=== PATIENT | male | born 1965 | race Caucasian/White ===

== ENCOUNTER 2016-10-29 02:23 | Inpatient (IN) | payer OTHER ==
[2016-10-29] VITALS (7 sets, daily range): BP systolic 124–138; BP diastolic 81–97; PULSE 64–101; RESP 12–20; TEMP 96.1–98.9; O2SAT 96–100
[~2016-10-29] VITALS: Ht 175.3 cm; Wt 95.7 kg
[~2016-10-29 02:23] MED LIST: CEFU1TAB20 PO; DILA2TAB2 PO
--- NOTE | 2016-10-29 03:15 | PD ---
HPI Chief Complaint: Injury Time Seen by Provider: 02:58 Travel History International Travel<30 days: No Contact w/Intl Traveler<30days: No Traveled to known affect area: No History of Present Illness HPI So 51-year-old man, seen on October 12 with a laceration to his left second and third finger with a power saw, repaired by Dr. Stacy Braswell, discharged a couple days after that. He reportedly saw her in the office last week and was recommended to work presents to the emergency department for concern for infection. He reports he's been feeling sick with worsening pain and swelling. He apparently went to the [facility] last night, they had x-rays that showed concern for osteomyelitis, elevated inflammatory markers, and they spoke with Dr. Upton who recommended patient be transferred to [place]. History Past Medical History Narrative Medical Polysubstance abuse/IV drug use Social History Alcohol Use: Yes (rare) Tobacco Use: Yes (1ppd) Allergies-Medications (Allergen,Severity, Reaction): Coded Allergies: No Known Allergies (Unverified , 10/12/16) Reported Meds & Prescriptions Reported Meds & Active Scripts Active No Active Prescriptions or Reported Medications Review of Systems Except as stated in HPI: all other systems reviewed are Neg Physical Exam Narrative GENERAL: 51-year-old man, sleeping in the room, no acute distress. SKIN: Focused skin assessment warm/dry. CARDIOVASCULAR: Warm and well perfused. RESPIRATORY: Normal rate and effort. GASTROINTESTINAL: Abdomen soft, non-tender, nondistended. Hepatic and splenic margins not palpable. MUSCULOSKELETAL: Fusiform swelling of the left second and third digits. There is cough and scab along good parts of both digits. They're held slightly flexed. There are pins in both digits. I don't see any obvious purulent drainage. PSYCHIATRIC: Appropriate mood and affect; insight and judgment normal. Data Data Last Documented VS Vital Signs Date Time Temp Pulse Resp B/P Pulse Ox O2 Delivery O2 Flow Rate FiO2 10/29/16 02:31 94 100 10/29/16 02:31 98.7 14 131/88 Room Air Orders Admit Order (Ed Use Only) (10/29/16 ) [facility] Medical Decision Making Medical Screen Exam Complete: Yes Emergency Medical Condition: Yes Medical Record Reviewed: Yes Interpretation(s) Review of outpatient records: CBC remarkable for white count 7.4, hemoglobin 14.6 Sedimentation rate 36 CMP shows elevated liver enzymes CRP 19 Lactate 2.3 UA negative Chest x-ray negative Left hand x-ray: See lysis and marked demineralization at the PIP joint index finger which was previously stabilized to thin wires, suspect for inflammation or osteomyelitis. Associated soft tissue swelling. Retrograde stabilization of the DIP joint the middle finger so she with marked soft tissue swelling and heterogenous calcification. My review of EKG: Normal sinus rhythm at a rate of 75, normal axis, normal intervals, incomplete right bundle. No acute infarction. Differential Diagnosis Osteomyelitis, soft tissue infection, inflammation, other Narrative Course Medical decision making 51-year-old man, referred from an outside ED for concern for osteomyelitis. Accepted by Dr. Rocha. I spoke with Dr. Upton. Would like patient Nothing by mouth. Surgery today with Dr. Braswell. Diagnosis Primary Impression: Infection of left hand Scripts No Active Prescriptions or Reported Meds Miguel Ángel Trejo MD Oct 29, 2016 03:15
[2016-10-29] MEDS ORDERED: Vancomycin Consult Pharmacy 1 EA OTHER SCH (03:30)
[2016-10-29] MEDS ORDERED: SODIUM CHLORIDE 0.9% FLUSH 10 ML FLUSH IV FLUSH PRN (03:30)
[2016-10-29] MEDS ORDERED: NALOXONE HCL 0.4 MG/ML AMP IV PRN (03:30)
[2016-10-29] MEDS ORDERED: VANCOMYCIN INJ 2,400 MG in SODIUM CHLORID 0.9% 500 ML INJ 500 ML IV ONE (04:00)
[2016-10-29] MEDS: PIPERACIL-TAZO 4.5 GM PREMIX 100 ML IV SCH ×4 (04:04→21:20)
--- NOTE | 2016-10-29 06:02 | HHI.HP ---
HPI Service [facility] Primary Care Physician No Primary Care Physician Admission Diagnosis osteomyelitis left second and third digit Diagnoses: Travel History International Travel<30 Days: No Contact w/Intl Traveler <30 Da: No Traveled to Known Affected Are: No History of Present Illness History from patient, ER physician communication, and review of medical records. Patient is known to me from his prior hospitalization. Patient in his last hospitalization had hand surgery for having had injury from a chain saw. He reports that since discharge, he noticed that his wound was getting more and more swollen with purulent discharge. He then had an outpatient appointment with Dr. Braswell the hand surgeon on Wednesday. He was told at that time that he does have postop infection and that he needed to be on antibiotics. She was supposed to come to hospital on that day. He however did not come. However for the past 2 days, he started having some nausea, some sweating. No diaphoresis. He also did report of some vomiting. Reports of sweating with subjective fevers at that time. This symptoms of nausea and vomiting was what made him go to [facility] which was the closest place to him at that time. His workup done there reviewed. He has had left hand x-ray suggestive of osteomyelitis. His case was discussed with the hand surgery bullion weigher by [facility] staff members and he was transferred here for surgical intervention of this postop infection. Patient is admitted to medicine service per hand surgery request. Review of Systems Except as stated in HPI: all other systems reviewed are Neg Past Family Social History Past Medical History None Past Surgical History October 13, 2016open reduction and pain in all fracture dislocation of the left middle finger DIP joint with placement of bone allograft. See detailed OR report Allergies: Coded Allergies: No Known Allergies (Unverified , 10/12/16) Social History Still smokes a pack a day. Denies any alcohol abuse. States he uses cocaine occasionally. He uses it by IV injection. Last used was 6 days prior to the previous hospitalization. This would be around September. Physical Exam Vital Signs Vital Signs Date Time Temp Pulse Resp B/P Pulse Ox O2 Delivery O2 Flow Rate FiO2 10/29/16 02:31 94 100 7/13/17 02:31 98.7 78 14 131/88 100 Room Air 10/29/16 02:27 98.9 14 100 Physical Exam GENERAL: This is a well-nourished, well-developed patient, in no apparent distress. SKIN: Left middle finger and index finger with scaling skin, and swelling. Visible pins from post op HEAD: Atraumatic. Normocephalic. No temporal or scalp tenderness. EYES: No scleral icterus. No injection or drainage. ENT: Nose without bleeding, purulent drainage or septal hematoma. Airway patent. NECK: Trachea midline. No JVD CARDIOVASCULAR: Regular rate and rhythm without murmurs, gallops, or rubs. RESPIRATORY: Clear to auscultation. Breath sounds equal bilaterally. No wheezes , rales, or rhonchi. GASTROINTESTINAL: Abdomen soft, non-tender, nondistended.. No guarding. MUSCULOSKELETAL: Extremities without clubbing, cyanosis, or edema. No calf tenderness. NEUROLOGICAL: Awake and alert. Normal speech. No focal deficits. [facility] the [facility] hand done at [facility] is reviewed. Assessment and Plan Assessment and Plan Impression: Left hand postoperative infection Nausea/vomitingetiology unclear. Possibly secondary to underlying infection from the hand. However would need to rule out intra-abdominal etiologies. Would also rule out ACS in a patient who abuses cocaine, with chronic smoking history and vague symptoms without specific abdominal pain. Plan: Pain control IV hydration. Pain control. Patient was started on vancomycin and Zosyn. We'll continue same regimen for her creatinine clearance and levels. We'll follow up wound cultures results. DVT prophylaxiswith SCD. Discussed Condition With Patient, ER physician, patient's nurse, transfer center Physician Certification 2 Midnight Certification Type: Admission for Inpatient Services Order for Inpatient Services The services are ordered in accordance with Medicare regulations or non- Medicare payer requirements, as applicable. In the case of services not specified as inpatient-only, they are appropriately provided as inpatient services in accordance with the 2-midnight benchmark. Estimated LOS (days): 2 days is the estimated time the patient will need to remain in the hospital, assuming treatment plan goals are met and no additional complications. Post-Hospital Plan: Home Juliana Rocha MD Oct 29, 2016 06:02
[2016-10-29 06:34] LABS: AUTOMATED NEUTROPHIL # 7.4 TH/MM3 (1.8-7.7); BASOPHIL # 0.1 TH/MM3 (0-0.2); BASOPHIL % 0.7 % (0.0-2.0); EOSINOPHIL # 0.1 TH/MM3 (0-0.4); EOSINOPHIL % 0.9 % (0.0-4.0); HEMO FLAGS DIFF FINAL; LYMPH % 17.3 % (9.0-44.0); LYMPHOCYTE # 1.8 TH/MM3 (1.0-4.8); MEAN CELL VOLUME 84.1 FL (80.0-100.0); MEAN CORPUSCULAR HEMOGLOBIN 29.5 PG (27.0-34.0); MEAN CORPUSCULAR HGB CONC 35.1 % (32.0-36.0); MONO % 8.8 % (0.0-8.0); NEUT % 72.3 % (16.0-70.0); PLATELET COUNT 318 TH/MM3 (150-450); RED BLOOD COUNT 4.76 MIL/MM3 (4.50-5.90); RED CELL DISTRIBUTION WIDTH 13.6 % (11.6-17.2); WHITE BLOOD COUNT 10.2 TH/MM3 (4.0-11.0)
[2016-10-29 06:44] LABS: APTT (PATIENT) 29.6 SEC (24.3-30.1); INTERNATIONAL NORMALIZED RATIO 1.1 RATIO
[2016-10-29 07:00] LABS: ALT (GPT) 295 U/L (12-78)
[2016-10-29 07:02] LABS: ALKALINE PHOSPHATASE 98 U/L (45-117); TOTAL BILIRUBIN ADULT 0.9 MG/DL (0.2-1.0)
[2016-10-29 07:04] LABS: ANION GAP 7 MEQ/L (5-15); AST (GOT) 154 U/L (15-37); BICARBONATE 24.1 MEQ/L (21.0-32.0); BLOOD UREA NITROGEN 15 MG/DL (7-18); CHLORIDE 105 MEQ/L (98-107); GLOMERULAR FILTRATION RATE 70 ML/MIN (>89); SODIUM (NA) 136 MEQ/L (136-145)
[2016-10-29 07:06] LABS: POTASSIUM 4.6 MEQ/L (3.5-5.1)
[2016-10-29 07:50] LABS: AMPHETAMINE, URINE POS (NEG); BARBITURATES, URINE NEG (NEG); COCAINE, URINE NEG (NEG)
--- NOTE | 2016-10-29 07:52 | RADRPT ---
EXAM DATE/TIME: 10/29/2016 07:33 [facility] COMPARISON: HAND LEFT COMPLETE ([id number]), October 12, 2016, 20:59. INDICATIONS : Left hand surgical wound infection and pain. MEDICAL HISTORY : None. SURGICAL HISTORY : Left hand digit repair, 2nd & 3rd. ENCOUNTER: Subsequent ACUITY: 3 days PAIN SCORE: 5/10 LOCATION: Left hand, 2nd & 3rd digits FINDINGS: Post surgical changes are noted following pinning and reduction of fractures involving the second and third digits. Third digit demonstrates 2 pins extending longitudinally through the proximal and mid phalanx. The di slocated distal interphalangeal joint has been realigned. Fracture involving the mid interphalangeal joint of second digit has been stabilized with 2 pins. The re appears to be satisfactory alignment of the proximal and mid phalanges. CONCLUSION: Status post pinning and reduction of fractures involving the second and third digits as described. Nicola Cruz MD on October 29, 2016 at 7:48 Board Certified Radiologist. This report was verified electronically.
--- NOTE | 2016-10-29 08:29 | EKG ---
Date Performed: 10/29/2016 Time Performed: 06:14:37 PTAGE: 51 years EKG: Sinus rhythm INCOMPLETE RIGHT BUNDLE BRANCH BLOCK BORDERLINE ECG PREVIOUS TRNo significant change from PREVIOUS TRACING noted.ACIN10/13/2016 08.00 DOCTOR: Stanley Washington Interpretating Date/Time 10/29/2016 08:26:57
[2016-10-29 08:48] LABS: CREATINE KINASE 129 U/L (39-308)
[2016-10-29] MEDS: SODIUM CHLORIDE 0.9% FLUSH 10 ML FLUSH IV FLUSH SCH ×2 (09:20→21:21)
[2016-10-29] MEDS ORDERED: PHENYLEPH/NS 1000 MCG/10 ML SYR IV ONE (12:00)
[2016-10-29] MEDS ORDERED: NEOSTIGMINE 3 MG/3 ML SYR IV ONE (12:00)
[2016-10-29] MEDS ORDERED: PROPOFOL 200 MG/20 ML AMP IV ONE (12:00)
[2016-10-29] MEDS ORDERED: LACTATED RINGER'S 1000 ML INJ 2,000 ML IV ONE (12:00)
[2016-10-29] MEDS ORDERED: ONDANSETRON HCL 4 MG/2 ML VIAL IV PUSH ONE (12:00)
[2016-10-29] MEDS ORDERED: TEMAZEPAM 15 MG CAP PO PRN (13:45)
[2016-10-29] MEDS ORDERED: ACETAMINOPHEN 325 MG TAB PO PRN (13:45)
[2016-10-29] MEDS: NICOTINE 21 MG/24 HR PATCH T-DERMAL SCH (13:45)
[2016-10-29] MEDS ORDERED: DOCUSATE SODIUM 50 MG/SENNA 8.6 MG TAB PO PRN (13:45)
--- NOTE | 2016-10-29 13:45 | HHI.PR ---
Subjective Remarks Follow-up Left second and third digit osteomyelitis 10/29/16-patient seen and examined, currently nothing by mouth pending evaluation from an surgery. Objective Vitals Vital Signs Date Time Temp Pulse Resp B/P Pulse Ox O2 Delivery O2 Flow Rate FiO2 10/29/16 10:33 98.2 76 12 124/87 98 Room Air 10/29/16 09:10 98.9 64 18 130/97 10/29/16 06:00 64 20 131/94 100 Room Air 10/29/16 02:31 94 100 10/29/16 02:31 98.7 78 14 131/88 100 Room Air 10/29/16 02:27 98.9 14 100 Result Diagram: 10/29/16 0610 10/29/16 0610 Imaging Last Impressions Hand X-Ray 10/29/16 0000 Signed Impressions: Service Date/Time: October 07:33 - CONCLUSION: Status post pinning and reduction of fractures involving the second and third digits as described. Nicola Cruz MD Objective Remarks GENERAL: NAD SKIN: Warm and dry. HEAD: Normocephalic. EYES: No scleral icterus. No injection or drainage. NECK: Supple, trachea midline. No JVD or lymphadenopathy. CARDIOVASCULAR: Regular rate and rhythm without murmurs, gallops, or rubs. RESPIRATORY: Breath sounds equal bilaterally. No accessory muscle use. GASTROINTESTINAL: Abdomen soft, non-tender, nondistended. MUSCULOSKELETAL: No cyanosis, or edema. BACK: Nontender without obvious deformity. No CVA tenderness. A/P Problem List: (1) Infection of left hand ICD Code: L08.9 Status: Acute Assessment and Plan 51-year-old man with Osteomyelitis left second and third digits Infection of fingers Hand surgery consultation pending Currently on Zosyn IV pending culture report Parenteral pain management Transaminitis Check hepatitis profile Tobacco abuse Tobacco counseling cessation provided Nicotine patch Thiago Ramirez MD Oct 29, 2016 13:45
[2016-10-29] MEDS ORDERED: BUPIVACAINE HCL PF 0.5% 30 ML VIAL ONE (16:08)
[2016-10-29] MEDS ORDERED: BACITRACIN TOP OINT 15 GM TUBE ONE (16:08)
[2016-10-29] MEDS ORDERED: LIDOCAINE HCL 2% 50 ML VIAL ONE (16:11)
[2016-10-29] MEDS ORDERED: LIDOCAINE 1%/EPINEPHrine 1:100,000 SOLN 20 ML VIAL ONE (16:12)
[2016-10-29] MEDS ORDERED: MIDAZOLAM HCL 2 MG/2 ML VIAL ONE (16:56)
[2016-10-29] MEDS ORDERED: DEXAMETHASONE SOD PHOS 4 MG/ML VIAL ONE (16:56)
[2016-10-29] MEDS ORDERED: fentaNYL CITRATE 250 MCG/5 ML AMP ONE (16:56)
[2016-10-29] MEDS ORDERED: NEOMYCIN/POLYMYXIN 1 ML G.U. IRRIGANT TOPICAL ONE (17:46)
[2016-10-29] MEDS ORDERED: HYDROmorphone HCL PF 2 MG/ML VIAL ONE (18:20)
[2016-10-29] MEDS ORDERED: *morphine SULFATE 8 MG/ML PERIprocedure ONLY ONE (20:15)
[2016-10-29] MEDS: REMOVE OLD PATCH T-DERMAL SCH (21:00)
[2016-10-29] MEDS ORDERED: DO NOT ADM ANY ANTICOAGULANT DRUGS PRN (21:00)
[2016-10-29] MEDS: MORPHINE SULFATE 4 MG/ML INJ IV PUSH PRN (21:20)
[2016-10-29] MEDS: VANCOMYCIN INJ 1,500 MG in SODIUM CHLORID 0.9% 500 ML INJ 500 ML IV SCH (22:11)
[2016-10-29] MEDS ORDERED: HYDROmorphone HCL PF 1 MG/ML VIAL IV PUSH ONE (23:30)
--- NOTE | 2016-10-29 23:55 | PD.ORT.PN ---
Subjective Subjective Remarks See dictated note for full details. Patient s/p I&D, tendon repairs, pinning left middle finger DIP joint and index finger PIP joint after severe table saw injury. Patient presented to office 10/22 with purulent drainage and instructed to present to [facility] ER immediately 10/22 for IV Ab and possible I&D left hand 10/23. Patient never presented to [facility] ER and did not return multiple phone calls from the office. Patient presented to [facility] 10/28 with persistent drainage and transferred to [facility] for evaluation. Patient presented both times without splint in place. Patient reports pain left hand. Objective Vitals Vital Signs Date Time Temp Pulse Resp B/P Pulse Ox O2 Delivery O2 Flow Rate FiO2 10/29/16 21:25 18 10/29/16 20:35 98.4 110 12 99 Room Air 10/29/16 20:30 98 12 151/91 99 Room Air 10/29/16 20:15 112 18 160/108 Room Air 10/29/16 20:03 97.7 101 17 169/99 100 Simple Mask 6 10/29/16 14:48 96.1 65 18 138/81 100 10/29/16 10:33 98.2 76 12 124/87 98 Room Air 10/29/16 09:10 98.9 64 18 130/97 10/29/16 06:00 64 20 131/94 100 Room Air 10/29/16 02:31 94 100 10/29/16 02:31 98.7 78 14 131/88 100 Room Air 10/29/16 02:27 98.9 14 100 I/O 10/28/16 10/28/16 10/28/16 10/29/16 10/29/16 10/29/16 06:59 14:59 22:59 06:59 14:59 22:59 Intake Total 2530 ml Output Total 25 ml Balance 2505 ml Intake Oral 480 ml IV Total 50 ml Other 2000 ml Output Estimated Blood Loss 25 ml # Voids 0 # Bowel Movements 0 Result Diagram: 10/29/16 0610 10/29/16 0610 Other Results Laboratory Tests Test 10/29/16 06:10 Prothrombin Time 12.0 SEC (9.8-11.6) Prothromb Time International 1.1 RATIO Ratio Imaging Last 24 hours Impressions Hand X-Ray 10/29/16 0000 Signed Impressions: Service Date/Time: October 07:33 - CONCLUSION: Status post pinning and reduction of fractures involving the second and third digits as described. Nicola Cruz MD Objective Remarks Dressing in place postoperatively, <2 sec capillary refill left index and middle fingers Assessment & Plan Assessment and Plan [id number] pmhx significant for cocaine, heroin, and amphetamine use s/p pinning left index and middle fingers 10/13 s/p severe table saw injury noted to have purulence from incisions on followup 10/22 with significant noncompliance with instructions to come to the ER for antibiotics and I&D. Patient did not present to ER until a week after instructed. -Patient currently on IV Ab, appreciate ID assistance. Follow intraop cultures and bone biopsy. Significant purulence along both incisions and site of previous fractures -No purulence proximally into hand -Performed repeat pinning left index PIP and middle finger DIP joints after I& D. Good capillary refill <2 sec both fingers. -Patient at high risk for wound complications, malunion, nonunion, pain, paresthesias, need for amputation of the fingers -Packing in place -Patient may require lengthy admission due to prior noncompliance postoperatively. May require repeat I&D -Will continue to follow. Dr Ch covering this weekend. -Keep splint in place Stacy Braswell MD Oct 29, 2016 23:55
[2016-10-30] VITALS (7 sets, daily range): BP systolic 97–165; BP diastolic 59–98; PULSE 73–97; RESP 17–23; TEMP 96.1–98.4; O2SAT 97–99
[2016-10-30 00:08] LABS: CREATINE KINASE 77 U/L (39-308)
[2016-10-30] MEDS ORDERED: HYDROmorphone HCL PF 1 MG/ML VIAL IV PUSH ONE (03:45)
[2016-10-30] MEDS: PIPERACIL-TAZO 4.5 GM PREMIX 100 ML IV SCH ×4 (04:35→20:46)
[2016-10-30 05:36] LABS: AUTOMATED NEUTROPHIL # 8.9 TH/MM3 (1.8-7.7); BASOPHIL % 0.3 % (0.0-2.0); EOSINOPHIL % 0.3 % (0.0-4.0); HEMATOCRIT 35.1 % (39.0-51.0); HEMO FLAGS DIFF FINAL; LYMPH % 13.5 % (9.0-44.0); LYMPHOCYTE # 1.6 TH/MM3 (1.0-4.8); MEAN CORPUSCULAR HEMOGLOBIN 29.1 PG (27.0-34.0); MEAN CORPUSCULAR HGB CONC 34.7 % (32.0-36.0); MONO % 9.6 % (0.0-8.0); NEUT % 76.3 % (16.0-70.0); PLATELET COUNT 349 TH/MM3 (150-450); RED BLOOD COUNT 4.19 MIL/MM3 (4.50-5.90); RED CELL DISTRIBUTION WIDTH 13.6 % (11.6-17.2); WHITE BLOOD COUNT 11.7 TH/MM3 (4.0-11.0)
[2016-10-30 06:07] LABS: ANION GAP 10 MEQ/L (5-15); BICARBONATE 26.3 MEQ/L (21.0-32.0); BLOOD UREA NITROGEN 23 MG/DL (7-18); CHLORIDE 103 MEQ/L (98-107); GLOMERULAR FILTRATION RATE 56 ML/MIN (>89); POTASSIUM 4.4 MEQ/L (3.5-5.1); SODIUM (NA) 139 MEQ/L (136-145)
--- NOTE | 2016-10-30 06:54 | MB ---
cc: SAYDA PRIETO DATE OF CONSULTATION 10/29/2016 REASON FOR CONSULTATION Infection left index and middle fingers. HISTORY OF PRESENT ILLNESS Meir Diaz is a patient known to me from prior surgical intervention after he sustained a table saw injury and underwent irrigation debridement of left index and middle fingers, flexor extensor tendons repairs and pinning of the left middle finger distal interphalangeal joint and left index finger proximal interphalangeal joint on 10/13/2016. The patient was admitted for several days and then discharged for follow up in the office. The patient does have a past medical history significant for cocaine use, heroin use and amphetamine use. On presentation in the office on 11/01/2016, the patient presented without his splint. He states he was noncompliant with the wound care. He presented with purulence from the wound. At that time, he was recommended to present emergently to the hospital for admission for IV antibiotics on 10/22/2016 with likely irrigation and debridement of the wound on 10/23/2016. Despite multiple phone calls by the office, the patient did not present to the emergency room until 10/29/2016 a week after initial presentation. Initially presented to an outside facility and was transferred to [facility]. He reported pain over the left hand with actually a decrease in purulence from the office visit. He denies drug use, although his urine was positive for amphetamines. Prior urine was positive for cocaine use. PHYSICAL EXAMINATION The patient was alert and oriented. No splint in place. The patient does have purulence coming from the left middle finger DIP joint and left index finger PIP joint. He does have a less than 2-second capillary refill to the fingers with K-wires in place. Sensation present but decreased on both fingers. No significant swelling into the hand. VITAL SIGNS: Stable with temperature 98.7, pulse 64, blood pressure 131/88. LABORATORY DATA White count of 10.2, CRP 1.45, ESR 25. IMAGING STUDIES X-rays of the hand show K-wires in place over the left middle finger DIP joint with excellent alignment of the fracture dislocation, as well as over the left index finger PIP joint again with good reduction of the fractures. ASSESSMENT/PLAN A 51-year-old male approximately two weeks status post pinning and repair after a table saw injury. He presented in delayed fashion to the emergency room with infection of the sites. The patient was instructed on his severe risk for complications due to his noncompliance with instructions. Again, he removed the postoperative splint. He did not present for evaluation for over a week. Thus I recommended admission for IV antibiotics, irrigation and debridement of the fingers, possible amputation of the fingers and he elected to proceed. Again, he understands he is at high risk for sepsis, wound complications, infection, persistent pain, persistent stiffness, persistent paresthesias, nonunion, malunion, osteomyelitis, amputation and he elects to proceed. He was educated on drug cessation. This will be done at the earliest available time. MD VERONICA Johnson/ALMAZ /12:06 AM /6:46 AM MTDD
--- NOTE | 2016-10-30 08:36 | MP ---
cc: STACY BRASWELL DATE OF SURGERY 10/29/2016 PREOPERATIVE DIAGNOSIS Infection, status post table saw injury and pinning of the left middle finger DIP joint and left index finger PIP joint. POSTOPERATIVE DIAGNOSIS Infection, status post table saw injury and pinning of the left middle finger DIP joint and left index finger PIP joint. PROCEDURE 1. Irrigation and debridement open wound skin, subcutaneous tissue, muscle and bone left middle finger related to possible osteomyelitis. 2. Irrigation and debridement open wound left index finger skin, subcutaneous tissue, muscle and bone related to possible osteomyelitis. 3. Revision open reduction and pinning the left middle finger distal interphalangeal joint. 4. Revision open reduction and pinning left index finger proximal interphalangeal joint. 5. Interpretation of fluoroscopy by the surgeon left hand SURGEON Dr. Stacy Braswell ANESTHESIA General and local TOURNIQUET TIME 22 minutes at 250 mmHg IMPLANTS Four 0.045 K-wires which are temporary. INDICATIONS FOR PROCEDURE Again, Meir Diaz is a 51-year-old male status post history significant for substance abuse status post a table saw injury who underwent irrigation, debridement, and repair of flexor extensor tendons, pinning of the left middle finger DIP joint, left index finger PIP joint on 10/13/2016. The patient was admitted for several days on IV antibiotics and then discharged. On follow-up on 10/22/2016, he was noted to have purulence and recommended to present to the hospital for IV antibiotics and likely irrigation and debridement. He did not present for over one week presenting to the hospital on 10/29/2016. He had elevated ESR, CRP and a normal white count, obvious purulent drainage from the wounds and I recommended again IV antibiotics and urgent irrigation and debridement surgery as indicated and the patient elected to proceed. DESCRIPTION OF PROCEDURE The patient was identified in the preoperative holding area and the upper extremity was marked. In the operating room where anesthesia was induced, the left upper extremity was prepped and draped in a normal sterile fashion. The prior K-wires were removed from the index and middle fingers. There was purulence from both wound which were sent for culture, as well as a piece of bone that was sent from the index finger middle phalanx for culture. Then 9 liters of antibiotic saline irrigated through both wounds. The patient had less than 2-second capillary refill at the tip of the both fingers. The decision was made to perform repeat pinning due to the significant instability of the fracture dislocations. Two 0.045 K-wires were placed across the left middle finger DIP joint to reduce the fracture dislocation. Unfortunately, I did have to debride the bone graft and the articular surface of the left index finger PIP joint which I had worked hard in the prior surgery to preserve. Then two K-wires were placed from the middle to distal phalanx across the left index finger PIP joint in an attempt for provisional fusion. I elected not to place a tension band due to the concern for infection and retained hardware. This provided stability to the PIP joint. The tourniquet was inflated to 250 mmHg for 22 minutes and then released and following this, the patient had less than 2-second capillary refill to both areas. Then placement of the K-wires were utilized under fluoroscopy which was interpreted by the surgeon throughout the procedure. Final fluoroscopy showed good alignment of the DIP and PIP joints. The wounds were closed loosely with chromic and packing was placed in each finger. He was placed into a splint. Approximately 15 cc of 2% lidocaine with no epinephrine was used for local anesthesia. The patient will remain in the hospital for a long period of time on IV antibiotics. Infectious disease was consulted. We will follow the cultures and he may require repeat debridement or repeat fusion of both joints. Again, he understands he is at high risk for complications including wound complications, infection, sepsis, amputation of the fingers, nonunion, malunion, pain, and paresthesias. MD VERONICA Johnson/ALMAZ /12:11 AM /8:24 AM ANANTH
[2016-10-30] MEDS: MORPHINE SULFATE 4 MG/ML INJ IV PUSH PRN (09:04)
[2016-10-30] MEDS: SODIUM CHLORIDE 0.9% FLUSH 10 ML FLUSH IV FLUSH SCH ×2 (09:05→20:51)
[2016-10-30] MEDS: NICOTINE 21 MG/24 HR PATCH T-DERMAL SCH (09:05)
[2016-10-30] MEDS: VANCOMYCIN INJ 1,500 MG in SODIUM CHLORID 0.9% 500 ML INJ 500 ML IV SCH (09:05)
--- NOTE | 2016-10-30 11:22 | HHI.PR ---
Subjective Remarks The patient said that he needed Dilaudid because the morphine wasn't working. He said his left hand was hurting severely. He said he was breathing comfortably. He says he's been ambulating. Discussed with nursing. Objective Vitals Vital Signs Date Time Temp Pulse Resp B/P Pulse Ox O2 Delivery O2 Flow Rate FiO2 10/30/16 11:00 73 10/30/16 08:00 97.1 86 17 97/59 97 10/30/16 04:00 98.1 89 20 110/71 97 10/30/16 00:00 98.1 97 20 151/88 99 10/29/16 21:51 96.7 101 20 136/89 96 10/29/16 21:25 18 10/29/16 20:35 98.4 110 12 99 Room Air 10/29/16 20:30 98 12 151/91 99 Room Air 10/29/16 20:15 112 18 160/108 Room Air 10/29/16 20:03 97.7 101 17 169/99 100 Simple Mask 6 10/29/16 14:48 96.1 65 18 138/81 100 I/O 10/29/16 10/29/16 10/29/16 10/30/16 10/30/16 10/30/16 07:00 15:00 23:00 07:00 15:00 23:00 Intake Total 2530 ml 720 ml Output Total 25 ml Balance 2505 ml 720 ml Intake Oral 480 ml 720 ml IV Total 50 ml Other 2000 ml Output Estimated Blood Loss 25 ml # Voids 0 2 # Bowel Movements 0 0 Result Diagram: 10/30/16 0433 10/30/16 0433 Imaging Last Impressions Hand X-Ray 10/29/16 0000 Signed Impressions: Service Date/Time: October 07:33 - CONCLUSION: Status post pinning and reduction of fractures involving the second and third digits as described. Nicola Cruz MD Objective Remarks GENERAL: NAD, resting in bed. SKIN: Warm and dry. HEAD: Normocephalic. EYES: No scleral icterus. No injection or drainage. NECK: Supple, trachea midline. No JVD or lymphadenopathy. CARDIOVASCULAR: Regular rate and rhythm without murmurs, gallops, or rubs. RESPIRATORY: Breath sounds equal bilaterally. No accessory muscle use. GASTROINTESTINAL: Abdomen soft, non-tender, nondistended. MUSCULOSKELETAL: No cyanosis, or edema. Left hand bandaged. BACK: Nontender without obvious deformity. No CVA tenderness. NEURO: No gross deficits. PSYCH: Flattened affect. A/P Problem List: (1) Infection of left hand ICD Code: L08.9 Status: Acute Assessment and Plan Osteomyelitis of left second and third digits Hand surgery consult appreciated. S/p I&D and repeat pinning left index PIP and middle finger DIP joints. - Currently on vancomycin and Zosyn IV. - ID consult pending. - Parenteral pain management as needed. Acute renal failure Unsure of etiology. - trial of fluids. Further work-up if no improvement. Transaminitis Hep C reactive. - trend LFTs. - liver US if needed. Tobacco abuse Tobacco counseling cessation provided. - Nicotine patch. PPx: Perfecto Tavares DO Oct 30, 2016 11:22
[2016-10-30] MEDS ORDERED: ACETAMINOPHEN/HYDROcodone 325 MG/5 MG TAB PO PRN (11:30)
[2016-10-30] MEDS ORDERED: ACETAMINOPHEN/HYDROcodone 325 MG/7.5 MG TAB PO PRN (11:30)
[2016-10-30] MEDS: DOCUSATE SODIUM 100 MG CAP PO SCH ×2 (11:30→20:46)
--- NOTE | 2016-10-30 13:13 | MB ---
cc: SAYDA BRASWELL,RUSTY Ng MD DATE OF CONSULTATION: 10/30/[address] Braswell reason finger infection. HISTORY OF PRESENT ILLNESS This is a 51-year-old white male who has an infection of the left being index finger and left middle finger. The patient had a table saw injury to the fingers involved and he underwent irrigation and debridement and repair of the flexor extensor tendons and pinning of the left middle finger distal interphalangeal joint and the left index finger proximal phalangeal joint on 10/13/2016. The patient has been noncompliant with follow-up and treatment. He apparently was recommended to present to the emergency department on 10/22/2016 for hospital admission and IV antibiotics. He did not come to the emergency room until 10/29/2016 when he was transferred from a different facility. He tells me that he developed purulence from the finger wound and prior to presenting he had nausea, vomiting, sweats and severe pain in the left index and left middle finger. The patient and his fiancee mentioned that he woke up early in the morning hours of 10/28/2016 and had nausea and vomiting. The patient was taken to surgery by the hand surgeon and he underwent irrigation and debridement of the wound, subcutaneous tissue, muscle and bone of the left middle finger and also of the left index finger, open reduction and pinning of both the left middle finger DIP joint and the left index finger PIP joint. Cultures were taken and the culture has growth of MRSA. The patient is currently afebrile. He feels okay. He denies nausea, vomiting, abdominal pain, shortness of breath or fevers. The white blood cell count is slightly elevated today at 11.7 compared to 10.2 yesterday. PAST MEDICAL HISTORY Unremarkable. ALLERGIES No known drug allergies. MEDICATIONS 1. Vancomycin. 2. Luckey 7.5. 3. Nicotine patch. 4. Piperacillin/tazobactam. SOCIAL HISTORY The patient smokes a pack of cigarettes a day. He uses cocaine IV. Occasional alcohol. FAMILY HISTORY Noncontributory. REVIEW OF SYSTEMS Pertinent as mentioned above in the history of present illness. PHYSICAL EXAMINATION GENERAL: This is a well-nourished male in no acute distress. VITAL SIGNS: Temperature 97.1, BP 97/59, respirations 18, heart rate 73. HEAD, EYES, EARS, NOSE, AND THROAT: Extraocular movements grossly intact. Pupils reactive to light. No icterus. Oropharynx has no visible lesions. NECK: Supple without adenopathy. LUNGS: Clear to auscultation. HEART: Regular rate and rhythm without murmurs, rubs or gallops. ABDOMEN: Bowel sounds present. Soft. No tenderness appreciated. RECTAL: Not performed. EXTREMITIES: The left hand is wrapped in a surgical dressing which was not removed for inspection of the wound at this time. The dressing extends from the fingers all the way up to the arm below the elbow. The rest of the extremities have no clubbing, cyanosis or edema. NEUROLOGIC: Nonfocal. SKIN: No rash. LABORATORY DATA WBC 11.7, platelets 349, hemoglobin 12.2. Creatinine 1.34, BUN 23, estimated GFR 56. Hepatitis C antibody reactive. IMPRESSION 1. MRSA wound infection of left index and middle finger following wound injury to both fingers. Patient status post repeat surgery including debridement and pinning of the index and middle fingers of the left hand. 2. Noncompliance. RECOMMENDATIONS 1. Continue vancomycin intravenous. 2. Discontinue piperacillin/tazobactam. 3. Monitor response of the wound to antibiotic treatment. Because of the surgical procedures and pinning of the wound I would recommend a prolonged course of antibiotics for this patient. Hopefully he will be compliant with the plan for antibiotic treatment. Thank you for this consultation. Further recommendations will be given upon follow-up. Rusty Meza MD FD/YENIFER /12:37 PM /12:55 PM
[2016-10-30] MEDS: ONDANSETRON HCL 4 MG/2 ML VIAL IV PRN ×2 (14:02→20:51)
[2016-10-30] MEDS: SODIUM CHLOR 0.9% 1000 ML INJ 1,000 ML IV SCH ×2 (14:03→21:45)
[2016-10-30] MEDS ORDERED: METOCLOPRAMIDE HCL 10 MG/2 ML VIAL IV PUSH ONE (16:00)
[2016-10-30] MEDS: REMOVE OLD PATCH T-DERMAL SCH (20:47)
[2016-10-31] VITALS (7 sets, daily range): BP systolic 143–167; BP diastolic 84–97; PULSE 64–93; RESP 17–20; TEMP 97.1–98.5; O2SAT 97–100
[2016-10-31] MEDS: PIPERACIL-TAZO 4.5 GM PREMIX 100 ML IV SCH ×4 (03:55→21:09)
[2016-10-31] MEDS: ONDANSETRON HCL 4 MG/2 ML VIAL IV PRN ×3 (04:02→20:07)
[2016-10-31] MEDS: VANCOMYCIN INJ 2,000 MG in SODIUM CHLORID 0.9% 500 ML INJ 500 ML IV SCH (05:27)
[2016-10-31 06:51] LABS: HEMATOCRIT 38.4 % (39.0-51.0); MEAN CELL VOLUME 85.4 FL (80.0-100.0); MEAN CORPUSCULAR HEMOGLOBIN 29.8 PG (27.0-34.0); MEAN CORPUSCULAR HGB CONC 34.9 % (32.0-36.0); PLATELET COUNT 312 TH/MM3 (150-450); RED BLOOD COUNT 4.49 MIL/MM3 (4.50-5.90); RED CELL DISTRIBUTION WIDTH 13.6 % (11.6-17.2); REVIEW FLAG FINAL; WHITE BLOOD COUNT 7.9 TH/MM3 (4.0-11.0)
[2016-10-31 07:00] LABS: MAGNESIUM 1.9 MG/DL (1.5-2.5); POTASSIUM 3.5 MEQ/L (3.5-5.1)
[2016-10-31 07:03] LABS: INDIRECT BILIRUBIN 0.6 MG/DL (0.0-0.8); TOTAL BILIRUBIN ADULT 0.8 MG/DL (0.2-1.0)
[2016-10-31] MEDS: DOCUSATE SODIUM 100 MG CAP PO SCH ×2 (09:00→20:10)
[2016-10-31] MEDS: SODIUM CHLORIDE 0.9% FLUSH 10 ML FLUSH IV FLUSH SCH ×2 (09:00→20:10)
--- NOTE | 2016-10-31 10:58 | EKG ---
Date Performed: 10/29/2016 Time Performed: 21:56:51 PTAGE: 51 years EKG: Sinus rhythm BORDERLINE LEFT AXIS DEVIATION INCOMPLETE RIGHT BUNDLE BRANCH BLOCK BORDERLINE ECG PREVIOUS TRACING : 10/29/2016 14.03 DOCTOR: Miguel Ángel Mac Interpretating Date/Time 10/31/2016 10:54:17
[2016-10-31] MEDS: NICOTINE 21 MG/24 HR PATCH T-DERMAL SCH (11:10)
--- NOTE | 2016-10-31 11:11 | EKG ---
Date Performed: 10/29/2016 Time Performed: 14:03:08 PTAGE: 51 years EKG: Sinus rhythm BORDERLINE LEFT AXIS DEVIATION INCOMPLETE RIGHT BUNDLE BRANCH BLOCK BORDERLINE ECG PREVIOUS TRACING : 10/29/2016 06.14 DOCTOR: Miguel Ángel Mac Interpretating Date/Time 10/31/2016 11:01:14
[2016-10-31] MEDS: REMOVE OLD PATCH T-DERMAL SCH (11:13)
[2016-10-31] MEDS: PANTOPRAZOLE SODIUM 40 MG VIAL IV PUSH SCH (11:13)
[2016-10-31] MEDS: HYDROmorphone HCL PF 1 MG/ML VIAL IV PUSH PRN ×2 (11:20→20:08)
--- NOTE | 2016-10-31 13:55 | HHI.PR ---
Subjective Remarks The patient was experiencing significant nausea and vomiting. He says it was triggered after he had a hamburger. He also said he had nausea and vomiting a few days before that. He thinks the pain medication might be playing a role. Discussed with nursing. Objective Vitals Vital Signs Date Time Temp Pulse Resp B/P Pulse Ox O2 Delivery O2 Flow Rate FiO2 10/31/16 12:00 98.1 68 20 153/97 98 10/31/16 08:15 64 10/31/16 08:00 98.5 84 20 155/89 98 10/31/16 04:00 97.1 79 19 144/93 99 10/31/16 00:00 97.2 76 20 167/95 100 10/30/16 20:00 96.1 80 23 150/91 99 10/30/16 16:00 98.4 82 17 165/98 99 I/O 10/30/16 10/30/16 10/30/16 10/31/16 10/31/16 10/31/16 07:00 15:00 23:00 07:00 15:00 23:00 Intake Total 720 ml 1396 ml 1146 ml 120 ml Output Total 500 ml 850 ml Balance 720 ml 896 ml 296 ml 120 ml Intake Oral 720 ml 360 ml 240 ml 120 ml IV Total 1036 ml 906 ml Output Urine Total 500 ml 850 ml # Voids 2 3 # Bowel Movements 0 0 Result Diagram: 10/31/16 0523 10/31/16 0523 Imaging Last Impressions Hand X-Ray 10/29/16 0000 Signed Impressions: Service Date/Time: October 07:33 - CONCLUSION: Status post pinning and reduction of fractures involving the second and third digits as described. Nicola Cruz MD Objective Remarks GENERAL: NAD, resting in bed. SKIN: Warm and dry. HEAD: Normocephalic. EYES: No scleral icterus. No injection or drainage. NECK: Supple, trachea midline. No JVD or lymphadenopathy. CARDIOVASCULAR: Regular rate and rhythm without murmurs, gallops, or rubs. RESPIRATORY: Breath sounds equal bilaterally. No accessory muscle use. GASTROINTESTINAL: Abdomen soft, non-tender, nondistended. MUSCULOSKELETAL: No cyanosis, or edema. Left hand bandaged. BACK: Nontender without obvious deformity. No CVA tenderness. NEURO: No gross deficits. PSYCH: Flattened affect. Medications and IVs Current Medications Medications (Trade) Dose Ordered Sig/Ronel Route Start Time Stop Time Status Last Admin (NS Flush) 2 ml UNSCH PRN IV FLUSH 10/29/16 03:30 (NS Flush) 2 ml BID IV FLUSH 10/29/16 09:00 10/30/16 09:05 Naloxone HCl 0.4 mg 0.4 mg UNSCH PRN IV 10/29/16 03:30 Pharmacy Profile Note 0 ml @ 0 mls/hr UNSCH OTHER 10/29/16 03:30 (Zosyn 4.5 Gm Premix) 100 ml @ 200 mls/hr Q6H IV 10/29/16 04:00 10/31/16 11:13 Miscellaneous Information SPECIFIC LAB TO BE DRAWN:VANCOMYCIN TROUGH DATE TO... ONCE ONCE .XX 11/01/16 05:45 11/01/16 05:46 (Tylenol) 650 mg Q4H PRN PO 10/29/16 13:45 (Zofran Inj) 4 mg Q6H PRN IV 10/29/16 13:45 10/31/16 11:10 (Gina-Colace) 1 tab BID PRN PO 10/29/16 13:45 (Restoril) 15 mg HS PRN PO 10/29/16 13:45 (Habitrol 21 Mg Patch.24 Hr) 1 patch DAILY T-DERMAL 10/29/16 13:45 10/31/16 11:10 Miscellaneous Information 1 1 HS T-DERMAL 10/29/16 21:00 10/31/16 11:13 (Vancomycin Inj/ NS 500 ml Inj) 520 ml @ 260 mls/hr Q24H IV 10/31/16 06:00 10/31/16 05:27 (Colace) 100 mg BID PO 10/30/16 11:30 10/30/16 20:46 (Zahl 5-325 Mg) 1 tab Q4H PRN PO 10/30/16 11:30 (Zahl 7.5-325 Mg) 1 tab Q4H PRN PO 10/30/16 11:30 10/30/16 11:47 (Dilaudid Pf Inj) 0.5 mg Q4H PRN IV PUSH 10/30/16 11:30 7/15/17 11:20 (Protonix Inj) 40 mg Q24H IV PUSH 10/31/16 10:00 10/31/16 11:13 A/P Problem List: (1) Infection of left hand ICD Code: L08.9 Status: Acute Assessment and Plan Osteomyelitis of left second and third digits Hand surgery consult appreciated. S/p I&D and repeat pinning left index PIP and middle finger DIP joints. Wound culture growing MRSA and gram-negative rods. ID consult appreciated. - Continue vancomycin and Zosyn IV and follow-up with infectious disease. - Parenteral pain management as needed. - Further management per hand surgery. Acute renal failure Unsure of etiology. Improved with fluids. - Continue IV fluids and avoid nephrotoxic agents. Transaminitis/ Nausea Hepatitis panel reactive to hepatitis C. The patient has persistent nausea and vomiting. Possible medication side effect. - Switch pain medications. - IV fluids. Advance diet as tolerated. - CT abdomen and pelvis pending. - Trend LFTs. Tobacco abuse Tobacco counseling cessation provided. - Nicotine patch. PPx: SCDs Discharge Planning Awaiting clinical improvement Perfecto Velazquez DO Oct 31, 2016 13:55
[2016-10-31] MEDS ORDERED: POTASSIUM CHLORIDE 25 MEQ EFFERVESCENT TAB PO ONE (14:00)
[2016-10-31] MEDS ORDERED: DIATRIZOATE MEGLUM/DIATRIZOATE SOD 9 ML CUP PO ONE (14:45)
[2016-10-31] MEDS: SODIUM CHLOR 0.9% 1000 ML INJ 1,000 ML IV SCH ×2 (16:46→23:24)
--- NOTE | 2016-10-31 21:23 | RADRPT ---
EXAM DATE/TIME: 10/31/2016 20:39 [facility] COMPARISON: No previous studies available for comparison. INDICATIONS : Patient complains of nausea ORAL CONTRAST: Prescribed oral contrast ingested. RADIATION DOSE: 14.94 CTDIvol (mGy) MEDICAL HISTORY : None SURGICAL HISTORY : None. ENCOUNTER: Initial ACUITY: 3 days PAIN SCALE: 0/10 LOCATION: abdomen TECHNIQUE: Volumetric scanning of the abdomen and pelvis was performed. Using automated exposure control and ad justment of the mA and/or kV according to patient size, radiation dose was kept as low as reasonably achievable to obtain optimal diagnostic quality images. DICOM format image data is available electro nically for review and comparison. FINDINGS: CT Abdomen: The liver, spleen, pancreas, right kidney, adrenals are unremarkable. There is no evidenc e for any appreciable pathological adenopathy, free fluid, or bowel obstruction. There is a tiny 2 m m stone in the left kidney. There is no ureteral stone and there is no hydronephrosis on either side. Chronic vascular calcifications are present involving the aorta, iliac arteries without any signific ant stenosis or aneurysmal dilatations for technique. CT pelvis: There is no evidence for mass, abscess formation, or any significant adenopathy within the pelvis. The prostate gland is inhomogeneous and measures 3.9 x 4.5 cm in AP and transverse diameters and nonspecific. There is moderate amount of stool throughout the colon. There is chronic spondyloly sis bilateral L5. CONCLUSION: 1. Tiny nonobstructing stone in the left kidney. 2. Chronic spondylolysis bilateral L5. Rajinder Malagon MD on October 31, 2016 at 21:18 Board Certified Radiologist. This report was verified electronically.
[2016-11-01] VITALS (7 sets, daily range): BP systolic 109–137; BP diastolic 70–81; PULSE 69–81; RESP 17–20; TEMP 96.9–97.9; O2SAT 96–100
[2016-11-01] MEDS: PIPERACIL-TAZO 4.5 GM PREMIX 100 ML IV SCH ×4 (03:44→20:09)
[2016-11-01] MEDS ORDERED: PHARMACY ORDERED LAB ONE (05:45)
[2016-11-01 06:08] LABS: ALT (GPT) 120 U/L (12-78); ANION GAP 6 MEQ/L (5-15); AST (GOT) 35 U/L (15-37); BICARBONATE 29.8 MEQ/L (21.0-32.0); BLOOD UREA NITROGEN 15 MG/DL (7-18); CHLORIDE 103 MEQ/L (98-107); GLOMERULAR FILTRATION RATE 56 ML/MIN (>89); POTASSIUM 4.1 MEQ/L (3.5-5.1); SODIUM (NA) 139 MEQ/L (136-145)
[2016-11-01 06:10] LABS: ALKALINE PHOSPHATASE 74 U/L (45-117); TOTAL BILIRUBIN ADULT 0.7 MG/DL (0.2-1.0)
[2016-11-01] MEDS: VANCOMYCIN INJ 2,000 MG in SODIUM CHLORID 0.9% 500 ML INJ 500 ML IV SCH ×2 (06:35→22:24)
[2016-11-01] MEDS: HYDROmorphone HCL PF 1 MG/ML VIAL IV PUSH PRN ×3 (06:35→22:25)
[2016-11-01] MEDS: NICOTINE 21 MG/24 HR PATCH T-DERMAL SCH (08:31)
[2016-11-01] MEDS: DOCUSATE SODIUM 100 MG CAP PO SCH ×2 (08:32→20:09)
[2016-11-01] MEDS: SODIUM CHLORIDE 0.9% FLUSH 10 ML FLUSH IV FLUSH SCH ×2 (09:00→20:10)
[2016-11-01] MEDS: PANTOPRAZOLE SODIUM 40 MG VIAL IV PUSH SCH (10:08)
[2016-11-01] MEDS ORDERED: DEXT 5%-NACL 0.9% 1000 ML INJ 1,000 ML IV SCH (11:00)
--- NOTE | 2016-11-01 11:00 | HHI.PR ---
Subjective Remarks The patient said that he feels a lot better. His nausea is improved and he is tolerating a diet. He was wondering about the infection in this hand. He does have good range of motion of the left arm. He says he has not had a bowel movement in days. Objective Vitals Vital Signs Date Time Temp Pulse Resp B/P Pulse Ox O2 Delivery O2 Flow Rate FiO2 11/01/16 08:00 96.9 70 20 121/71 97 11/01/16 04:00 97.9 77 17 119/79 100 11/01/16 00:00 97.0 72 17 137/81 99 10/31/16 20:00 97.5 77 17 162/87 99 10/31/16 16:00 97.8 93 20 143/84 97 10/31/16 12:00 98.1 68 20 153/97 98 I/O 10/31/16 10/31/16 10/31/16 11/01/16 11/01/16 11/01/16 07:00 15:00 23:00 07:00 15:00 23:00 Intake Total 1146 ml 880 ml 1687 ml 1031 ml 120 ml Output Total 850 ml 1700 ml 900 ml 300 ml Balance 296 ml -820 ml 787 ml 731 ml 120 ml Intake Oral 240 ml 880 ml 240 ml 240 ml 120 ml IV Total 906 ml 1447 ml 791 ml Output Urine Total 850 ml 1700 ml 900 ml 300 ml # Voids 3 # Bowel Movements 0 Result Diagram: 10/31/16 0523 11/01/16 0515 Imaging Last Impressions Abdomen/Pelvis CT 10/31/16 0000 Signed Impressions: Service Date/Time: Monday, October 31, 2016 20:39 - CONCLUSION: 1. Tiny nonobstructing stone in the left kidney. 2. Chronic spondylolysis bilateral L5. K. Luisito Malagon MD Hand X-Ray 10/29/16 0000 Signed Impressions: Service Date/Time: October 07:33 - CONCLUSION: Status post pinning and reduction of fractures involving the second and third digits as described. Nicola Cruz MD Objective Remarks GENERAL: NAD, resting in bed. SKIN: Warm and dry. HEAD: Normocephalic. EYES: No scleral icterus. No injection or drainage. NECK: Supple, trachea midline. No JVD or lymphadenopathy. CARDIOVASCULAR: Regular rate and rhythm without murmurs, gallops, or rubs. RESPIRATORY: Breath sounds equal bilaterally. No accessory muscle use. GASTROINTESTINAL: Abdomen soft, non-tender, nondistended. MUSCULOSKELETAL: No cyanosis, or edema. Left hand bandaged. BACK: Nontender without obvious deformity. No CVA tenderness. NEURO: No gross deficits. PSYCH: Mood and affect appropriate. Procedures I&D Medications and IVs Current Medications Medications (Trade) Dose Ordered Sig/Ronel Route Start Time Stop Time Status Last Admin (NS Flush) 2 ml UNSCH PRN IV FLUSH 10/29/16 03:30 (NS Flush) 2 ml BID IV FLUSH 10/29/16 09:00 10/31/16 20:10 Naloxone HCl 0.4 mg 0.4 mg UNSCH PRN IV 10/29/16 03:30 Pharmacy Profile Note 0 ml @ 0 mls/hr UNSCH OTHER 10/29/16 03:30 (Zosyn 4.5 Gm Premix) 100 ml @ 200 mls/hr Q6H IV 10/29/16 04:00 11/01/16 10:08 (Tylenol) 650 mg Q4H PRN PO 10/29/16 13:45 (Zofran Inj) 4 mg Q6H PRN IV 10/29/16 13:45 10/31/16 20:07 (Gina-Colace) 1 tab BID PRN PO 10/29/16 13:45 (Restoril) 15 mg HS PRN PO 10/29/16 13:45 (Habitrol 21 Mg Patch.24 Hr) 1 patch DAILY T-DERMAL 10/29/16 13:45 11/01/16 08:31 Miscellaneous Information 1 HS T-DERMAL 10/29/16 21:00 10/31/16 11:13 (Colace) 100 mg BID PO 10/30/16 11:30 11/01/16 08:32 (Dilaudid Pf Inj) 0.5 mg Q4H PRN IV PUSH 10/30/16 11:30 11/01/16 10:44 (Protonix Inj) 40 mg Q24H IV PUSH 10/31/16 10:00 11/01/16 10:08 (Roxicodone) 5 mg Q4H PRN PO 10/31/16 14:00 Oxycodone HCl 10 mg 10 mg Q4H PRN PO 10/31/16 14:00 11/01/16 08:32 (Vancomycin Inj/ NS 500 ml Inj) 520 ml @ 250 mls/hr Q18H IV 11/02/16 00:00 Miscellaneous Information SPECIFIC LAB TO BE ... ONCE ONCE .XX 11/03/16 11:45 11/03/16 11:46 Sennosides 17.2 mg 17.2 mg DAILY PO 11/01/16 10:30 UNV (D5W-NS 1000 ml Inj) 1,000 ml @ 75 mls/hr [id number] IV 11/01/16 11:00 11/02/16 00:19 A/P Problem List: (1) Infection of left hand ICD Code: L08.9 Status: Acute Assessment and Plan Osteomyelitis of left second and third digits Hand surgery consult appreciated. S/p I&D and repeat pinning left index PIP and middle finger DIP joints. Wound culture growing MRSA and Pseudomonas. ID consult appreciated. - Continue vancomycin and Zosyn IV and follow-up with infectious disease. - Parenteral pain management as needed. - Further management per hand surgery. - Follow culture data. Acute renal failure Unsure of etiology. - Continue IV fluids and avoid nephrotoxic agents. - Check UA, urine sodium and urine creatinine. Transaminitis/ Nausea Hepatitis panel reactive to hepatitis C. The patient has persistent nausea and vomiting. Possible medication side effect. CT abdomen unremarkable. - Switch pain medications. Improved. - IV fluids. Advance diet as tolerated. - Trend LFTs. Improving. Tobacco abuse Tobacco counseling cessation provided. - Nicotine patch. PPx: SCDs Discharge Planning Awaiting clinical improvement Perfecto Velazquez DO Nov 01, 2016 11:00
[2016-11-01] MEDS: SENNOSIDES 8.6 MG TAB PO SCH (11:08)
[2016-11-01] MEDS ORDERED: POLYETHYLENE GLYCOL 17 GM PKG PO ONE (11:30)
[2016-11-01 14:14] LABS: BLOOD, URINE NEG (NEG); GLUCOSE,URINE NEG (NEG); KETONE, URINE NEG (NEG); NITRITE,URINE NEG (NEG); PH, URINE 6.5 (5.0-8.5); SQUAMOUS EPITHELIAL CELL URINE <1 /hpf (0-5); URINE COLOR LIGHT-YELLOW (YELLW/STRAW)
[2016-11-01 14:19] LABS: COMMENT (UR) CULT NOT INDICATED; CULTURE IF INDICATED CULT NOT INDICATED
[2016-11-01] MEDS: REMOVE OLD PATCH T-DERMAL SCH (20:10)
[2016-11-02] VITALS (8 sets, daily range): BP systolic 100–129; BP diastolic 68–83; PULSE 69–96; RESP 16–20; TEMP 96.1–97.7; O2SAT 96–98
[2016-11-02] MEDS: PIPERACIL-TAZO 4.5 GM PREMIX 100 ML IV SCH ×2 (03:06→11:46)
[2016-11-02] MEDS: HYDROmorphone HCL PF 1 MG/ML VIAL IV PUSH PRN ×2 (05:00→17:58)
[2016-11-02 06:49] LABS: BICARBONATE 30.2 MEQ/L (21.0-32.0); MAGNESIUM 2.2 MG/DL (1.5-2.5); POTASSIUM 4.1 MEQ/L (3.5-5.1)
[2016-11-02] MEDS: SODIUM CHLORIDE 0.9% FLUSH 10 ML FLUSH IV FLUSH SCH ×2 (07:56→20:46)
[2016-11-02] MEDS: SENNOSIDES 8.6 MG TAB PO SCH (07:57)
[2016-11-02] MEDS: DOCUSATE SODIUM 100 MG CAP PO SCH ×2 (07:57→20:45)
[2016-11-02] MEDS: NICOTINE 21 MG/24 HR PATCH T-DERMAL SCH (07:57)
[2016-11-02] MEDS: PANTOPRAZOLE SODIUM 40 MG VIAL IV PUSH SCH (11:44)
--- NOTE | 2016-11-02 12:17 | HHI.PR ---
Subjective Remarks The patient wanted to do with the plan was. He had no acute complaints. Has been having bowel movements. Objective Vitals Vital Signs Date Time Temp Pulse Resp B/P Pulse Ox O2 Delivery O2 Flow Rate FiO2 11/02/16 08:00 96.4 74 17 110/68 97 11/02/16 04:00 96.1 69 17 113/69 96 11/02/16 00:00 96.8 79 17 100/70 98 11/01/16 20:30 69 11/01/16 20:00 97.7 81 17 109/72 98 11/01/16 16:00 97.9 77 20 123/78 98 I/O 11/01/16 11/01/16 11/01/16 11/02/16 11/02/16 11/02/16 07:00 15:00 23:00 07:00 15:00 23:00 Intake Total 1031 ml 1680 ml 1987 ml 1130 ml Output Total 300 ml 900 ml 500 ml 400 ml Balance 731 ml 780 ml 1487 ml 730 ml Intake Oral 240 ml 1080 ml 480 ml 240 ml IV Total 791 ml 600 ml 1507 ml 890 ml Output Urine Total 300 ml 900 ml 500 ml 400 ml # Bowel Movements 0 Result Diagram: 10/31/16 0523 11/02/16 0532 Imaging Last Impressions Abdomen/Pelvis CT 10/31/16 0000 Signed Impressions: Service Date/Time: Monday, October 31, 2016 20:39 - CONCLUSION: 1. Tiny nonobstructing stone in the left kidney. 2. Chronic spondylolysis bilateral L5. K. Luisito Malagon MD Hand X-Ray 10/29/16 0000 Signed Impressions: Service Date/Time: October 07:33 - CONCLUSION: Status post pinning and reduction of fractures involving the second and third digits as described. Nicola Cruz MD Objective Remarks GENERAL: NAD, resting in bed. SKIN: Warm and dry. HEAD: Normocephalic. EYES: No scleral icterus. No injection or drainage. NECK: Supple, trachea midline. No JVD or lymphadenopathy. CARDIOVASCULAR: Regular rate and rhythm without murmurs, gallops, or rubs. RESPIRATORY: Breath sounds equal bilaterally. No accessory muscle use. GASTROINTESTINAL: Abdomen soft, non-tender, nondistended. MUSCULOSKELETAL: No cyanosis, or edema. Left hand bandaged. BACK: Nontender without obvious deformity. No CVA tenderness. NEURO: No gross deficits. PSYCH: Mood and affect appropriate. Procedures I&D Medications and IVs Current Medications Medications (Trade) Dose Ordered Sig/Ronel Route Start Time Stop Time Status Last Admin (NS Flush) 2 ml UNSCH PRN IV FLUSH 10/29/16 03:30 (NS Flush) 2 ml BID IV FLUSH 10/29/16 09:00 11/02/16 07:56 Naloxone HCl 0.4 mg 0.4 mg UNSCH PRN IV 10/29/16 03:30 Pharmacy Profile Note 0 ml @ 0 mls/hr UNSCH OTHER 10/29/16 03:30 (Zosyn 4.5 Gm Premix) 100 ml @ 200 mls/hr Q6H IV 10/29/16 04:00 11/02/16 11:46 (Tylenol) 650 mg Q4H PRN PO 10/29/16 13:45 (Zofran Inj) 4 mg Q6H PRN IV 10/29/16 13:45 10/31/16 20:07 (Gina-Colace) 1 tab BID PRN PO 10/29/16 13:45 (Restoril) 15 mg HS PRN PO 10/29/16 13:45 (Habitrol 21 Mg Patch.24 Hr) 1 patch DAILY T-DERMAL 10/29/16 13:45 11/02/16 07:57 Miscellaneous Information 1 HS T-DERMAL 10/29/16 21:00 11/01/16 20:10 (Colace) 100 mg BID PO 10/30/16 11:30 11/01/16 20:09 (Dilaudid Pf Inj) 0.5 mg Q4H PRN IV PUSH 10/30/16 11:30 11/02/16 05:00 (Protonix Inj) 40 mg Q24H IV PUSH 10/31/16 10:00 11/02/16 11:44 (Roxicodone) 5 mg Q4H PRN PO 10/31/16 14:00 Oxycodone HCl 10 mg 10 mg Q4H PRN PO 10/31/16 14:00 11/02/16 11:45 (Vancomycin Inj/ NS 500 ml Inj) 520 ml @ 250 mls/hr Q18H IV 11/02/16 00:00 11/01/16 22:24 Miscellaneous Information SPECIFIC LAB TO BE ... ONCE ONCE .XX 11/03/16 11:45 11/03/16 11:46 (Senokot) 17.2 mg DAILY PO 11/01/16 11:00 11/01/16 11:08 A/P Problem List: (1) Infection of left hand ICD Code: L08.9 Status: Acute Assessment and Plan Osteomyelitis of left second and third digits Hand surgery consult appreciated. S/p I&D and repeat pinning left index PIP and middle finger DIP joints. Wound culture growing MRSA and Pseudomonas. ID consult appreciated. - Continue vancomycin and Zosyn IV and follow-up with infectious disease. - Parenteral pain management as needed. - Further management per hand surgery. - Follow culture data. Acute renal failure Unsure of etiology. FENa 2%, indicating intrinsic disease. - avoid nephrotoxic agents and follow BMP. - renal US. Transaminitis/ Nausea Hepatitis panel reactive to hepatitis C. The patient has persistent nausea and vomiting. Possible medication side effect. CT abdomen unremarkable. - Switch pain medications. Improved. - IV fluids. Advance diet as tolerated. - Trend LFTs. Improving. Tobacco abuse Tobacco counseling cessation provided. - Nicotine patch. PPx: SCDs Discharge Planning Awaiting clinical improvement Perfecto Velazquez DO Nov 02, 2016 12:17
--- NOTE | 2016-11-02 15:04 | HHI.IDPN ---
Note Infectious Disease Note Patient without complaints. Denies chills. Has pain in the left hand. Afebrile. Wound culture has MRSA and pseudomonas. Admitted for infection of the left being index finger and left middle finger. Noncompliant with follow-up and treatment. He was recommended to present to the emergency department on 10/22/2016 for hospital admission and IV antibiotics. He did not come to the emergency room until 10/29/2016 when he was transferred from a different facility. Developed purulence from the finger wound and prior to presenting he had nausea, vomiting, sweats and severe pain in the left index and left middle finger. PAST MEDICAL HISTORY Unremarkable. ALLERGIES No known drug allergies. MEDICATIONS 1. Vancomycin. 2. Piperacillin/tazobactam. SOCIAL HISTORY The patient smokes a pack of cigarettes a day. He uses cocaine IV. Occasional alcohol. OBJECTIVE: Vital Signs Date Time Temp Pulse Resp B/P Pulse Ox O2 Delivery O2 Flow Rate FiO2 11/02/16 12:34 73 11/02/16 12:00 96.5 96 18 117/74 97 11/02/16 12:00 96.5 96 18 117/74 97 11/02/16 08:00 96.4 74 17 110/68 97 11/02/16 04:00 96.1 69 17 113/69 96 11/02/16 00:00 96.8 79 17 100/70 98 11/01/16 20:30 69 11/01/16 20:00 97.7 81 17 109/72 98 11/01/16 16:00 97.9 77 20 123/78 98 11/01/16 11/01/16 11/02/16 15:00 23:00 07:00 Intake Total 1680 ml 1987 ml 1130 ml Output Total 900 ml 500 ml 400 ml Balance 780 ml 1487 ml 730 ml Intake Oral 1080 ml 480 ml 240 ml IV Total 600 ml 1507 ml 890 ml Output Urine Total 900 ml 500 ml 400 ml # Bowel Movements 0 Laboratory Tests Test 11/01/16 11/02/16 05:15 05:32 Sodium Level 139 MEQ/L 138 MEQ/L Potassium Level 4.1 MEQ/L 4.1 MEQ/L Chloride Level 103 MEQ/L 101 MEQ/L Carbon Dioxide Level 29.8 MEQ/L 30.2 MEQ/L Anion Gap 6 MEQ/L 7 MEQ/L Blood Urea Nitrogen 15 MG/DL 19 MG/DL Creatinine 1.34 MG/DL 1.47 MG/DL Estimat Glomerular Filtration 56 ML/MIN 50 ML/MIN Rate Random Glucose 98 MG/DL 95 MG/DL Calcium Level 8.8 MG/DL 9.1 MG/DL Total Bilirubin 0.7 MG/DL Aspartate Amino Transf 35 U/L (AST/SGOT) Alanine Aminotransferase 120 U/L (ALT/SGPT) Alkaline Phosphatase 74 U/L Total Protein 7.1 GM/DL Albumin 2.9 GM/DL Magnesium Level 2.2 MG/DL PHYSICAL EXAMINATION GENERAL: No acute distress. HEENT: No icterus. Oropharynx has no visible lesions. NECK: Supple without adenopathy. LUNGS: Clear to auscultation. HEART: Regular rate and rhythm without murmurs, rubs or gallops. ABDOMEN: Bowel sounds present. Soft. EXTREMITIES: The left hand is wrapped in a surgical dressing which was not removed for inspection of the wound at this time. Awaiting hand surgeon to change the dressing. NEUROLOGIC: Nonfocal. SKIN: No rash. IMPRESSION 1. MRSA wound infection of left index and middle finger following wound injury to both fingers. Patient status post repeat surgery including debridement and pinning of the index and middle fingers of the left hand. Culture has MRSA and Pseudomonas. 2. Noncompliance. RECOMMENDATIONS 1. Continue vancomycin intravenous x 4 weeks. 2. Discontinue piperacillin/tazobactam. 3. Start Levaquin PO. 4. Stressed compliance with the plan for antibiotic treatment. Otherwise patient at risk of losing portions of the left index and middle finger. Rusty Meza MD Nov 02, 2016 15:04
--- NOTE | 2016-11-02 15:51 | RADRPT ---
EXAM DATE/TIME: 11/02/2016 15:13 [facility] COMPARISON: CT ABDOMEN & PELVIS W/O CONTRAST, October 31, 2016, 20:39. INDICATIONS : Increased lab values. MEDICAL HISTORY : Methicillin-resistant Staphylococcus aureus. SURGICAL HISTORY : Left hand surgery. ENCOUNTER: Initial ACUITY: 1 day PAIN SCORE: 2/10 LOCATION: Bilateral flank MEASUREMENTS: RIGHT KIDNEY: 10.6 x 4.9 x 4.3 cm LEFT KIDNEY: 11.5 x 6.0 x 5.7 cm FINDINGS: RIGHT KIDNEY: Renal cortex is normal in thickness and echotexture. No hydronephrosis, stone, or mass. LEFT KIDNEY: Renal cortex is normal in thickness and echotexture. No hydronephrosis, stone, or mass. BLADDER: Within normal limits given the degree of distension. CONCLUSION: Normal examination. Left kidney stone seen on CT scan is not identified on the ultrasound Miguel Ángel Jacques MD on November 02, 2016 at 15:48 Board Certified Radiologist. This report was verified electronically.
[2016-11-02] MEDS: LEVOFLOXACIN 500 MG TAB PO SCH (17:58)
[2016-11-02] MEDS: VANCOMYCIN INJ 2,000 MG in SODIUM CHLORID 0.9% 500 ML INJ 500 ML IV SCH (17:58)
[2016-11-02] MEDS: REMOVE OLD PATCH T-DERMAL SCH (20:45)
[2016-11-03] VITALS (8 sets, daily range): BP systolic 114–137; BP diastolic 63–87; PULSE 81–102; RESP 17–20; TEMP 96–98.1; O2SAT 97–100
[2016-11-03] MEDS: PANTOPRAZOLE SODIUM 40 MG VIAL IV PUSH SCH (09:18)
[2016-11-03] MEDS: NICOTINE 21 MG/24 HR PATCH T-DERMAL SCH (09:19)
[2016-11-03] MEDS: SODIUM CHLORIDE 0.9% FLUSH 10 ML FLUSH IV FLUSH SCH ×2 (09:19→19:45)
[2016-11-03] MEDS: DOCUSATE SODIUM 100 MG CAP PO SCH ×2 (09:27→19:44)
[2016-11-03] MEDS: SENNOSIDES 8.6 MG TAB PO SCH (09:29)
[2016-11-03] MEDS ORDERED: DEXT 5%-NACL 0.9% 1000 ML INJ 1,000 ML IV SCH (09:45)
--- NOTE | 2016-11-03 09:52 | HHI.PR ---
Subjective Remarks The patient feels well. He had no acute complaints. He wanted to know about long-term antibiotics. Has been having bowel movements. Has been sleeping well. Discussed with nursing. Objective Vitals Vital Signs Date Time Temp Pulse Resp B/P Pulse Ox O2 Delivery O2 Flow Rate FiO2 11/03/16 08:00 96.0 85 18 124/74 97 11/03/16 04:00 97.8 102 20 137/87 99 11/03/16 00:00 97.2 96 20 117/68 98 11/02/16 21:00 88 11/02/16 20:00 97.7 81 20 107/72 98 11/02/16 16:00 96.3 84 16 129/83 98 11/02/16 12:34 73 11/02/16 12:00 96.5 96 18 117/74 97 11/02/16 12:00 96.5 96 18 117/74 97 I/O 11/02/16 11/02/16 11/02/16 11/03/16 11/03/16 11/03/16 06:59 14:59 22:59 06:59 14:59 22:59 Intake Total 1130 ml 600 ml Output Total 400 ml 375 ml Balance 730 ml 225 ml Intake Oral 240 ml 600 ml IV Total 890 ml Output Urine Total 400 ml 375 ml # Voids 2 2 2 # Bowel Movements 1 1 0 Result Diagram: 10/31/16 0523 11/02/16 0532 Imaging Last Impressions Renal Ultrasound 11/02/16 0000 Signed Impressions: Service Date/Time: Wednesday, November 02, 2016 15:13 - CONCLUSION: Normal examination. Left kidney stone seen on CT scan is not identified on the ultrasound Miguel Ángel Jacques MD Abdomen/Pelvis CT 10/31/16 0000 Signed Impressions: Service Date/Time: Monday, October 31, 2016 20:39 - CONCLUSION: 1. Tiny nonobstructing stone in the left kidney. 2. Chronic spondylolysis bilateral L5. K. Luisito Malagon MD Hand X-Ray 10/29/16 0000 Signed Impressions: Service Date/Time: October 07:33 - CONCLUSION: Status post pinning and reduction of fractures involving the second and third digits as described. Nicola Cruz MD Objective Remarks GENERAL: NAD, resting in bed. SKIN: Warm and dry. HEAD: Normocephalic. EYES: No scleral icterus. No injection or drainage. NECK: Supple, trachea midline. No JVD or lymphadenopathy. CARDIOVASCULAR: Regular rate and rhythm without murmurs, gallops, or rubs. RESPIRATORY: Breath sounds equal bilaterally. No accessory muscle use. GASTROINTESTINAL: Abdomen soft, non-tender, nondistended. MUSCULOSKELETAL: No cyanosis, or edema. Left hand bandaged. BACK: Nontender without obvious deformity. No CVA tenderness. NEURO: No gross deficits. PSYCH: Mood and affect appropriate. Procedures I&D Medications and IVs Current Medications Medications (Trade) Dose Ordered Sig/Ronel Route Start Time Stop Time Status Last Admin (NS Flush) 2 ml UNSCH PRN IV FLUSH 10/29/16 03:30 (NS Flush) 2 ml BID IV FLUSH 10/29/16 09:00 11/03/16 09:19 Naloxone HCl 0.4 mg 0.4 mg UNSCH PRN IV 10/29/16 03:30 (Vancomycin Consult Pharmacy) 0 ml @ 0 mls/hr UNSCH OTHER 10/29/16 03:30 (Tylenol) 650 mg Q4H PRN PO 10/29/16 13:45 (Zofran Inj) 4 mg Q6H PRN IV 10/29/16 13:45 10/31/16 20:07 (Gina-Colace) 1 tab BID PRN PO 10/29/16 13:45 (Restoril) 15 mg HS PRN PO 10/29/16 13:45 (Habitrol 21 Mg Patch.24 Hr) 1 patch DAILY T-DERMAL 10/29/16 13:45 11/03/16 09:19 Miscellaneous Information 1 HS T-DERMAL 10/29/16 21:00 11/02/16 20:45 (Colace) 100 mg BID PO 10/30/16 11:30 11/02/16 20:45 (Dilaudid Pf Inj) 0.5 mg Q4H PRN IV PUSH 10/30/16 11:30 11/02/16 17:58 (Roxicodone) 5 mg Q4H PRN PO 10/31/16 14:00 Oxycodone HCl 10 mg 10 mg Q4H PRN PO 10/31/16 14:00 11/03/16 09:18 (Vancomycin Inj/ NS 500 ml Inj) 520 ml @ 250 mls/hr Q18H IV 11/02/16 00:00 11/02/16 17:58 Miscellaneous Information SPECIFIC LAB TO BE ... ONCE ONCE .XX 11/03/16 11:45 11/03/16 11:46 (Senokot) 17.2 mg DAILY PO 11/01/16 11:00 11/01/16 11:08 (Levaquin) 500 mg Q24H PO 11/02/16 17:00 11/02/16 17:58 Pantoprazole Sodium 40 mg 40 mg DAILY PO 11/04/16 09:00 (D5W-NS 1000 ml Inj) 1,000 ml @ 100 mls/hr Q10H IV 11/03/16 09:45 11/03/16 19:44 UNV A/P Problem List: (1) Infection of left hand ICD Code: L08.9 Status: Acute Assessment and Plan Osteomyelitis of left second and third digits Hand surgery consult appreciated. S/p I&D and repeat pinning left index PIP and middle finger DIP joints. Wound culture growing MRSA and Pseudomonas. ID consult appreciated. - Continue vancomycin and switch Zosyn to Levaquin per infectious disease. - Parenteral pain management as needed. - Further management per hand surgery. Dr. Braswell stated she will be performing a dressing change 11/03. Acute renal failure Unsure of etiology. FENa 2%, indicating intrinsic disease. Renal US unremarkable. Suspect a component of chronic renal disease. - avoid nephrotoxic agents. - IVFs. - repeat BMP pending. - nephrology consult if creatinine does not remain stable. Transaminitis/ Nausea Hepatitis panel reactive to hepatitis C. The patient has persistent nausea and vomiting. Possible medication side effect. CT abdomen unremarkable. - Switch pain medications. Improved. - IV fluids. Advance diet as tolerated. - Trend LFTs. Improving. Tobacco abuse Tobacco counseling cessation provided. - Nicotine patch. PPx: SCDs Discharge Planning Awaiting clinical improvement Perfecto Velazquez DO Nov 03, 2016 09:52
[2016-11-03] MEDS ORDERED: PHARMACY ORDERED LAB ONE (11:45)
[2016-11-03] MEDS: VANCOMYCIN INJ 2,000 MG in SODIUM CHLORID 0.9% 500 ML INJ 500 ML IV SCH (12:09)
[2016-11-03] MEDS: HYDROmorphone HCL PF 1 MG/ML VIAL IV PUSH PRN ×2 (12:41→21:30)
[2016-11-03 12:47] LABS: ALT (GPT) 119 U/L (12-78)
[2016-11-03 12:49] LABS: ALKALINE PHOSPHATASE 85 U/L (45-117); ANION GAP 7 MEQ/L (5-15); AST (GOT) 56 U/L (15-37); BICARBONATE 27.6 MEQ/L (21.0-32.0); BLOOD UREA NITROGEN 19 MG/DL (7-18); CHLORIDE 101 MEQ/L (98-107); GLOMERULAR FILTRATION RATE 64 ML/MIN (>89); POTASSIUM 4.4 MEQ/L (3.5-5.1); SODIUM (NA) 136 MEQ/L (136-145); TOTAL BILIRUBIN ADULT 0.4 MG/DL (0.2-1.0); VANCOMYCIN TROUGH 10.1 MCG/ML (5.0-10.0)
[2016-11-03] MEDS: LEVOFLOXACIN 500 MG TAB PO SCH (16:22)
[2016-11-03] MEDS: REMOVE OLD PATCH T-DERMAL SCH (19:45)
--- NOTE | 2016-11-03 20:57 | PD.ORT.PN ---
Subjective Subjective Remarks Patient reports pain controlled. Reports mild paresthesias left middle finger and index finger. Patient would like to go home soon. States he will be compliant with antibiotics Objective Vitals Vital Signs Date Time Temp Pulse Resp B/P Pulse Ox O2 Delivery O2 Flow Rate FiO2 11/03/16 16:00 97.3 88 17 119/63 97 11/03/16 12:00 97.1 100 17 133/75 100 11/03/16 08:00 96.0 85 18 124/74 97 11/03/16 07:58 86 11/03/16 04:00 97.8 102 20 137/87 99 11/03/16 00:00 97.2 96 20 117/68 98 11/02/16 21:00 88 I/O 11/02/16 11/02/16 11/02/16 11/03/16 11/03/16 11/03/16 07:00 15:00 23:00 07:00 15:00 23:00 Intake Total 1130 ml 600 ml 600 ml Output Total 400 ml 375 ml Balance 730 ml 225 ml 600 ml Intake Oral 240 ml 600 ml 600 ml IV Total 890 ml Output Urine Total 400 ml 375 ml # Voids 2 2 2 7 # Bowel Movements 1 1 0 0 Result Diagram: 10/31/16 0523 11/03/16 1147 Imaging Last 24 hours Impressions Hand X-Ray 10/29/16 0000 Signed Impressions: Service Date/Time: October 07:33 - CONCLUSION: Status post pinning and reduction of fractures involving the second and third digits as described. Nicola Cruz MD Objective Remarks Dressing removed. K-wires in place left index and middle fingers. Packing removed with mild amount of purulent drainage. decreased sensation index and middle fingers, <2 sec capillary refill index and middle fingers. able to fire fds middle finger and fdp index finger Assessment & Plan Assessment and Plan [id number] significant for cocaine, heroin, and amphetamine use s/p pinning left index and middle fingers 10/13 s/p severe table saw injury noted to have purulence from incisions on followup 10/22 with significant noncompliance with instructions to come to the ER for antibiotics and I&D. Patient did not present to ER until a week after instructed. -Cultures +MRSA and pseudomonas. Appreciate ID recommendations IV Vanc and oral Levaquin. Will continue to follow recommendations -Would like to re-examine wound on for possible d/c home Wednesday if antibiotics can be arranged versus repeat I&D wednesday if needed. Appreciate case management assistance arranging outpatient IV antibiotics in patient with history of IV drug abuse -Patient at high risk for wound complications, malunion, nonunion, pain, paresthesias, osteomyelitis, need for amputation of the fingers Stacy Braswell MD Nov 03, 2016 20:57
--- NOTE | 2016-11-03 21:31 | RADRPT ---
EXAM DATE/TIME: 11/03/2016 21:16 [facility] COMPARISON: No previous studies available for comparison. INDICATIONS : Left hand pain post surgery. Patient states surgery was five days ago. MEDICAL HISTORY : None. SURGICAL HISTORY : Left hand. ENCOUNTER: Initial ACUITY: 1 week PAIN SCORE: 3/10 LOCATION: Left hand. FINDINGS: Bandage artifact and splint artifact noted. There are external fixation pins traversing the third and second digits with osteotomies performed at the second PIP joint and third DIP joint. Prominent soft tissue swelling of the second and third digit. CONCLUSION: Prominent soft tissue swelling and postsurgical changes with external fixation pin hardware placement . Constantin Elliott MD on November 03, 2016 at 21:29 Board Certified Radiologist. This report was verified electronically.
[2016-11-04] VITALS: BP 121/70; PULSE 80; RESP 18; TEMP 96.7; O2SAT 97
[2016-11-04 04:00] VITALS: BP 108/66; PULSE 76; RESP 18; TEMP 97; O2SAT 96
[2016-11-04] MEDS: VANCOMYCIN INJ 2,250 MG in SODIUM CHLORID 0.9% 500 ML INJ 500 ML IV SCH (06:24)
[2016-11-04] MEDS: SODIUM CHLORIDE 0.9% FLUSH 10 ML FLUSH IV FLUSH SCH ×2 (07:45→20:29)
[2016-11-04] MEDS: HYDROmorphone HCL PF 1 MG/ML VIAL IV PUSH PRN ×4 (07:45→21:31)
[2016-11-04] MEDS: PANTOPRAZOLE SOD 40 MG DELAYED RELEASE TAB PO SCH (07:47)
[2016-11-04] MEDS: SENNOSIDES 8.6 MG TAB PO SCH (07:47)
[2016-11-04] MEDS: DOCUSATE SODIUM 100 MG CAP PO SCH ×2 (07:47→20:27)
[2016-11-04] MEDS: NICOTINE 21 MG/24 HR PATCH T-DERMAL SCH (07:48)
[2016-11-04 08:00] VITALS: BP 125/79; PULSE 85; RESP 20; TEMP 96.9; O2SAT 98
--- NOTE | 2016-11-04 10:22 | HHI.PR ---
Subjective Remarks This is a pleasant 51 y/o Male with infection of the left index finger and Left Middle finger, after injury, status post Irrigation and debridement and repair of the flexor extensor tendons and Pinning of the left middle finger distal interphalangeal joint and the left index finger proximal phalangeal joint on 10/13/16. The patient has been noncompliant with follow-up and treatment. recommended to come to ER 10/22/16, but the patient came on 10/29/16, developed Purulent tissue. taken to Surgery room status post I and D. subcutaneous tissue, muscle and bone of the left middle finger and also of the left index finger, open reduction and pinning of both the left middle finger DIP joint and the left index finger PIP joint. Cultures were taken and the culture has growth of MRSA. 11/04: Stable in his bedroom, no nausea, vomit or diarrhea. Objective Vital Signs Date Time Temp Pulse Resp B/P Pulse Ox O2 Delivery O2 Flow Rate FiO2 11/04/16 08:15 18 11/04/16 08:00 96.9 85 20 125/79 98 11/04/16 07:24 18 11/04/16 04:00 97.0 76 18 108/66 96 11/04/16 00:00 96.7 80 18 121/70 97 11/03/16 20:35 85 11/03/16 20:00 98.1 81 20 114/72 98 11/03/16 16:00 97.3 88 17 119/63 97 11/03/16 12:00 97.1 100 17 133/75 100 I/O 11/03/16 11/03/16 11/03/16 11/04/16 11/04/16 11/04/16 07:00 15:00 23:00 07:00 15:00 23:00 Intake Total 600 ml 240 ml Balance 600 ml 240 ml Intake Oral 600 ml 240 ml # Voids 2 7 2 # Bowel Movements 0 0 1 Result Diagram: 10/31/16 0523 11/03/16 1147 Imaging Last Impressions Hand X-Ray 11/03/16 0000 Signed Impressions: Service Date/Time: Thursday, November 03, 2016 21:16 - CONCLUSION: Prominent soft tissue swelling and postsurgical changes with external fixation pin hardware placement. Constantin Elliott MD Renal Ultrasound 11/02/16 0000 Signed Impressions: Service Date/Time: Wednesday, November 02, 2016 15:13 - CONCLUSION: Normal examination. Left kidney stone seen on CT scan is not identified on the ultrasound Miguel Ángel Jacques MD Abdomen/Pelvis CT 10/31/16 0000 Signed Impressions: Service Date/Time: Monday, October 31, 2016 20:39 - CONCLUSION: 1. Tiny nonobstructing stone in the left kidney. 2. Chronic spondylolysis bilateral L5. K. Luisito Malagon MD Procedures I and D. Other Results Laboratory Tests Test 10/31/16 11/01/16 11/02/16 11/03/16 05:23 13:51 05:32 11:47 White Blood Count 7.9 TH/MM3 Red Blood Count 4.49 MIL/MM3 Hemoglobin 13.4 GM/DL Hematocrit 38.4 % Mean Corpuscular Volume 85.4 FL Mean Corpuscular Hemoglobin 29.8 PG Mean Corpuscular Hemoglobin 34.9 % Concent Red Cell Distribution Width 13.6 % Platelet Count 312 TH/MM3 Mean Platelet Volume 7.6 FL Direct Bilirubin 0.2 MG/DL Indirect Bilirubin 0.6 MG/DL Lipase 223 U/L Urine Color LIGHT-YELLOW Urine Turbidity CLEAR Urine pH 6.5 Urine Specific [place] 1.012 Urine Protein NEG mg/dL Urine Glucose (UA) NEG mg/dL Urine Ketones NEG mg/dL Urine Occult Blood NEG Urine Nitrite NEG Urine Bilirubin NEG Urine Urobilinogen LESS THAN 2.0 MG/DL Urine Leukocyte Esterase NEG Urine RBC LESS THAN 1 /hpf Urine WBC LESS THAN 1 /hpf Urine Squamous Epithelial <1 /hpf Cells Urine Oval Fat Bodies Microscopic Urinalysis Comment CULT NOT INDICATED Urine Random Creatinine 50.6 MG/DL Urine Random Sodium 107 MEQ/L Magnesium Level 2.2 MG/DL Sodium Level 136 MEQ/L Potassium Level 4.4 MEQ/L Chloride Level 101 MEQ/L Carbon Dioxide Level 27.6 MEQ/L Anion Gap 7 MEQ/L Blood Urea Nitrogen 19 MG/DL Creatinine 1.20 MG/DL Estimat Glomerular Filtration 64 ML/MIN Rate Random Glucose 109 MG/DL Calcium Level 9.3 MG/DL Total Bilirubin 0.4 MG/DL Aspartate Amino Transf 56 U/L (AST/SGOT) Alanine Aminotransferase 119 U/L (ALT/SGPT) Alkaline Phosphatase 85 U/L Total Protein 7.8 GM/DL Albumin 3.3 GM/DL Vancomycin Level Trough 10.1 MCG/ML Objective Remarks GENERAL: NAD, resting in bed. SKIN: Warm and dry. HEAD: Normocephalic. EYES: No scleral icterus. No injection or drainage. NECK: Supple, trachea midline. No JVD or lymphadenopathy. CARDIOVASCULAR: Regular rate and rhythm without murmurs, gallops, or rubs. RESPIRATORY: Breath sounds equal bilaterally. No accessory muscle use. GASTROINTESTINAL: Abdomen soft, non-tender, nondistended. MUSCULOSKELETAL: No cyanosis, or edema. Left hand bandaged. BACK: Nontender without obvious deformity. No CVA tenderness. NEURO: No gross deficits. PSYCH: Mood and affect appropriate. Medications and IVs Current Medications Medications (Trade) Dose Ordered Sig/Ronel Route Start Time Stop Time Status Last Admin (NS Flush) 2 ml UNSCH PRN IV FLUSH 10/29/16 03:30 (NS Flush) 2 ml BID IV FLUSH 10/29/16 09:00 11/04/16 07:45 Naloxone HCl 0.4 mg 0.4 mg UNSCH PRN IV 10/29/16 03:30 (Vancomycin Consult Pharmacy) 0 ml @ 0 mls/hr UNSCH OTHER 10/29/16 03:30 (Tylenol) 650 mg Q4H PRN PO 10/29/16 13:45 (Zofran Inj) 4 mg Q6H PRN IV 10/29/16 13:45 10/31/16 20:07 (Gina-Colace) 1 tab BID PRN PO 10/29/16 13:45 (Restoril) 15 mg HS PRN PO 10/29/16 13:45 (Habitrol 21 Mg Patch.24 Hr) 1 patch DAILY T-DERMAL 10/29/16 13:45 11/04/16 07:48 Miscellaneous Information 1 HS T-DERMAL 10/29/16 21:00 11/03/16 19:45 (Colace) 100 mg BID PO 10/30/16 11:30 11/04/16 07:47 (Dilaudid Pf Inj) 0.5 mg Q4H PRN IV PUSH 10/30/16 11:30 11/04/16 07:45 (Roxicodone) 5 mg Q4H PRN PO 10/31/16 14:00 (Roxicodone) 10 mg Q4H PRN PO 10/31/16 14:00 11/04/16 06:24 (Senokot) 17.2 mg DAILY PO 11/01/16 11:00 11/04/16 07:47 (Levaquin) 500 mg Q24H PO 11/02/16 17:00 11/03/16 16:22 Pantoprazole Sodium 40 mg 40 mg DAILY PO 11/04/16 09:00 11/04/16 07:47 (Vancomycin Inj/ NS 500 ml Inj) 522.5 ml @ 250 mls/hr Q18H IV 11/04/16 06:00 11/04/16 06:24 Miscellaneous Information SPECIFIC LAB TO BE DRAWN:VANCOMYCIN TROUGH DATE TO... ONCE ONCE .XX 11/06/16 11:45 11/06/16 11:46 A/P Assessment and Plan Osteomyelitis of left second and third digits Hand surgery consult appreciated. S/p I&D and repeat pinning left index PIP and middle finger DIP joints. Wound culture growing MRSA and Pseudomonas. ID consult appreciated. - Continue Vancomycin IV for four weeks. Levaquin by mouth. Acute renal failure Improved. Renal US unremarkable. Nephrology specialist following. Transaminitis/ Nausea Hepatitis panel reactive to hepatitis C. The patient has persistent nausea and vomiting. Possible medication side effect. CT abdomen unremarkable. - Switch pain medications. Improved. - IV fluids. Advance diet as tolerated. - Trend LFTs. Improving. Tobacco abuse Tobacco counseling cessation provided. - Nicotine patch. PPx: SCDs Discharge Planning Once cleared by specialists. Hector Hirsch MD Nov 04, 2016 10:22 Hector Hirsch MD Nov 04, 2016 10:22 - Nicotine patch. PPx: SCDs Discharge Planning Hector Hirsch MD Nov 04, 2016 10:22
[2016-11-04 12:00] VITALS: BP 123/75; PULSE 93; RESP 20; TEMP 97.8; O2SAT 97
[2016-11-04 16:00] VITALS: BP 108/70; PULSE 88; RESP 20; TEMP 97.6; O2SAT 99
[2016-11-04] MEDS: LEVOFLOXACIN 500 MG TAB PO SCH (17:10)
[2016-11-04 20:00] VITALS: BP 144/65; PULSE 86; PULSE 98; RESP 17; TEMP 97.4; O2SAT 97
[2016-11-04] MEDS: REMOVE OLD PATCH T-DERMAL SCH (20:29)
[2016-11-05] VITALS (7 sets, daily range): BP systolic 116–186; BP diastolic 72–86; PULSE 86–98; RESP 17–20; TEMP 95.7–98.7; O2SAT 95–100
[2016-11-05] MEDS: VANCOMYCIN INJ 2,250 MG in SODIUM CHLORID 0.9% 500 ML INJ 500 ML IV SCH ×2 (00:55→16:31)
[2016-11-05] MEDS: DOCUSATE SODIUM 100 MG CAP PO SCH ×2 (08:14→19:42)
[2016-11-05] MEDS: SENNOSIDES 8.6 MG TAB PO SCH (08:14)
[2016-11-05] MEDS: PANTOPRAZOLE SOD 40 MG DELAYED RELEASE TAB PO SCH (08:14)
[2016-11-05] MEDS: NICOTINE 21 MG/24 HR PATCH T-DERMAL SCH (08:15)
[2016-11-05] MEDS: HYDROmorphone HCL PF 1 MG/ML VIAL IV PUSH PRN ×3 (08:15→19:44)
[2016-11-05] MEDS: SODIUM CHLORIDE 0.9% FLUSH 10 ML FLUSH IV FLUSH SCH ×2 (08:15→19:44)
--- NOTE | 2016-11-05 09:36 | HHI.PR ---
Subjective Remarks This is a pleasant 51 y/o Male with infection of the left index finger and Left Middle finger, after injury, status post Irrigation and debridement and repair of the flexor extensor tendons and Pinning of the left middle finger distal interphalangeal joint and the left index finger proximal phalangeal joint on 10/13/16. The patient has been noncompliant with follow-up and treatment. recommended to come to ER 10/22/16, but the patient came on 10/29/16, developed Purulent tissue. taken to Surgery room status post I and D. subcutaneous tissue, muscle and bone of the left middle finger and also of the left index finger, open reduction and pinning of both the left middle finger DIP joint and the left index finger PIP joint. Cultures were taken and the culture has growth of MRSA. 11/04: Stable in his bedroom, no nausea, vomit or diarrhea. 11/05: Seen in his office, encourage ambulation, no nausea, vomit or diarrhea awaiting final by Hand cyber security specialist and by ID specialist continue antibiotics, for growing Pseudomonas Aeruginosa and MRSA. Objective Vital Signs Date Time Temp Pulse Resp B/P Pulse Ox O2 Delivery O2 Flow Rate FiO2 11/05/16 08:00 98.5 86 20 126/74 100 11/05/16 04:00 96.9 90 17 124/72 97 11/05/16 01:55 20 11/05/16 00:00 95.7 88 17 116/86 97 11/04/16 22:00 18 11/04/16 20:00 98 11/04/16 20:00 97.4 86 17 144/65 97 11/04/16 16:00 97.6 88 20 108/70 99 11/04/16 12:00 97.8 93 20 123/75 97 I/O 11/04/16 11/04/16 11/04/16 11/05/16 11/05/16 11/05/16 07:00 15:00 23:00 07:00 15:00 23:00 Intake Total 840 ml 980 ml 240 ml 120 ml Output Total 800 ml 400 ml Balance 40 ml 580 ml 240 ml 120 ml Intake Oral 840 ml 480 ml 240 ml 120 ml IV Total 500 ml Output Urine Total 800 ml 400 ml # Voids 2 # Bowel Movements 1 Result Diagram: 11/05/16 0630 Imaging Last Impressions Hand X-Ray 11/03/16 0000 Signed Impressions: Service Date/Time: Thursday, November 03, 2016 21:16 - CONCLUSION: Prominent soft tissue swelling and postsurgical changes with external fixation pin hardware placement. Constantin Elliott MD Renal Ultrasound 11/02/16 0000 Signed Impressions: Service Date/Time: Wednesday, November 02, 2016 15:13 - CONCLUSION: Normal examination. Left kidney stone seen on CT scan is not identified on the ultrasound Miguel Ángel Jacques MD Abdomen/Pelvis CT 10/31/16 0000 Signed Impressions: Service Date/Time: Monday, October 31, 2016 20:39 - CONCLUSION: 1. Tiny nonobstructing stone in the left kidney. 2. Chronic spondylolysis bilateral L5. K. Luisito Malagon MD Procedures I and D. Other Results Laboratory Tests Test 11/01/16 11/02/16 11/03/16 11/05/16 13:51 05:32 11:47 06:30 Urine Color LIGHT-YELLOW Urine Turbidity CLEAR Urine pH 6.5 Urine Specific [place] 1.012 Urine Protein NEG mg/dL Urine Glucose (UA) NEG mg/dL Urine Ketones NEG mg/dL Urine Occult Blood NEG Urine Nitrite NEG Urine Bilirubin NEG Urine Urobilinogen LESS THAN 2.0 MG/DL Urine Leukocyte Esterase NEG Urine RBC LESS THAN 1 /hpf Urine WBC LESS THAN 1 /hpf Urine Squamous Epithelial <1 /hpf Cells Urine Oval Fat Bodies Microscopic Urinalysis Comment CULT NOT INDICATED Urine Random Creatinine 50.6 MG/DL Urine Random Sodium 107 MEQ/L Magnesium Level 2.2 MG/DL Sodium Level 136 MEQ/L Potassium Level 4.4 MEQ/L Chloride Level 101 MEQ/L Carbon Dioxide Level 27.6 MEQ/L Anion Gap 7 MEQ/L Blood Urea Nitrogen 19 MG/DL Random Glucose 109 MG/DL Calcium Level 9.3 MG/DL Total Bilirubin 0.4 MG/DL Aspartate Amino Transf 56 U/L (AST/SGOT) Alanine Aminotransferase 119 U/L (ALT/SGPT) Alkaline Phosphatase 85 U/L Total Protein 7.8 GM/DL Albumin 3.3 GM/DL Vancomycin Level Trough 10.1 MCG/ML Creatinine 1.25 MG/DL Estimat Glomerular Filtration 61 ML/MIN Rate Objective Remarks GENERAL: NAD, resting in bed. SKIN: Warm and dry. HEAD: Normocephalic. EYES: No scleral icterus. No injection or drainage. NECK: Supple, trachea midline. No JVD or lymphadenopathy. CARDIOVASCULAR: Regular rate and rhythm without murmurs, gallops, or rubs. RESPIRATORY: Breath sounds equal bilaterally. No accessory muscle use. GASTROINTESTINAL: Abdomen soft, non-tender, nondistended. MUSCULOSKELETAL: No cyanosis, or edema. Left hand bandaged. BACK: Nontender without obvious deformity. No CVA tenderness. NEURO: No gross deficits. PSYCH: Mood and affect appropriate. Medications and IVs Current Medications Medications (Trade) Dose Ordered Sig/Ronel Route Start Time Stop Time Status Last Admin (NS Flush) 2 ml UNSCH PRN IV FLUSH 10/29/16 03:30 (NS Flush) 2 ml BID IV FLUSH 10/29/16 09:00 11/05/16 08:15 Naloxone HCl 0.4 mg 0.4 mg UNSCH PRN IV 10/29/16 03:30 (Vancomycin Consult Pharmacy) 0 ml @ 0 mls/hr UNSCH OTHER 10/29/16 03:30 (Tylenol) 650 mg Q4H PRN PO 10/29/16 13:45 (Zofran Inj) 4 mg Q6H PRN IV 10/29/16 13:45 10/31/16 20:07 (Gina-Colace) 1 tab BID PRN PO 10/29/16 13:45 (Restoril) 15 mg HS PRN PO 10/29/16 13:45 (Habitrol 21 Mg Patch.24 Hr) 1 patch DAILY T-DERMAL 10/29/16 13:45 11/05/16 08:15 Miscellaneous Information 1 HS T-DERMAL 10/29/16 21:00 11/04/16 20:29 (Colace) 100 mg BID PO 10/30/16 11:30 11/05/16 08:14 (Dilaudid Pf Inj) 0.5 mg Q4H PRN IV PUSH 10/30/16 11:30 11/05/16 08:15 (Roxicodone) 5 mg Q4H PRN PO 10/31/16 14:00 (Roxicodone) 10 mg Q4H PRN PO 10/31/16 14:00 11/05/16 05:30 (Senokot) 17.2 mg DAILY PO 11/01/16 11:00 11/05/16 08:14 (Levaquin) 500 mg Q24H PO 11/02/16 17:00 11/04/16 17:10 Pantoprazole Sodium 40 mg 40 mg DAILY PO 11/04/16 09:00 11/05/16 08:14 (Vancomycin Inj/ NS 500 ml Inj) 522.5 ml @ 250 mls/hr Q18H IV 11/04/16 06:00 11/05/16 00:55 Miscellaneous Information SPECIFIC LAB TO BE DRAWN:VANCOMYCIN TROUGH DATE TO... ONCE ONCE .XX 11/06/16 11:45 11/06/16 11:46 A/P Assessment and Plan Osteomyelitis of left second and third digits Hand surgery consult appreciated. S/p I&D and repeat pinning left index PIP and middle finger DIP joints. Wound culture growing MRSA and Pseudomonas. ID consult appreciated. - Continue Vancomycin IV for four weeks. Levaquin by mouth. Acute renal failure Improved. Renal US unremarkable. Transaminitis/ Nausea Hepatitis panel reactive to hepatitis C.CT abdomen unremarkable - Trend LFTs. Improving. Tobacco abuse Tobacco counseling cessation provided. - Nicotine patch. PPx: Lovenox. Discharge Planning Once cleared by specialists. Hector Hirsch MD Nov 05, 2016 09:36 Once cleared by specialists. Hector Hirsch MD Nov 05, 2016 09:36
[2016-11-05] MEDS: ENOXAPARIN SODIUM 40 MG/0.4 ML SYRINGE SQ SCH (11:57)
[2016-11-05] MEDS: LEVOFLOXACIN 500 MG TAB PO SCH (16:31)
[2016-11-05] MEDS: REMOVE OLD PATCH T-DERMAL SCH (19:47)
[2016-11-06] VITALS: BP 105/72; PULSE 82; RESP 17; TEMP 97; O2SAT 99
[2016-11-06] MEDS: HYDROmorphone HCL PF 1 MG/ML VIAL IV PUSH PRN ×2 (00:42→12:17)
[2016-11-06 04:00] VITALS: BP 117/81; PULSE 97; RESP 17; TEMP 97.7; O2SAT 99
[2016-11-06 05:24] LABS: BASOPHIL # 0.1 TH/MM3 (0-0.2); BASOPHIL % 0.8 % (0.0-2.0); EOSINOPHIL # 0.4 TH/MM3 (0-0.4); EOSINOPHIL % 4.8 % (0.0-4.0); HEMATOCRIT 36.7 % (39.0-51.0); HEMO FLAGS DIFF FINAL; LYMPH % 28.4 % (9.0-44.0); LYMPHOCYTE # 2.2 TH/MM3 (1.0-4.8); MEAN CELL VOLUME 85.1 FL (80.0-100.0); MEAN CORPUSCULAR HGB CONC 35.3 % (32.0-36.0); MONO % 14.3 % (0.0-8.0); NEUT % 51.7 % (16.0-70.0); PLATELET COUNT 252 TH/MM3 (150-450); RED BLOOD COUNT 4.31 MIL/MM3 (4.50-5.90); RED CELL DISTRIBUTION WIDTH 13.7 % (11.6-17.2); WHITE BLOOD COUNT 7.8 TH/MM3 (4.0-11.0)
[2016-11-06 05:56] LABS: BICARBONATE 28.6 MEQ/L (21.0-32.0)
[2016-11-06 06:41] LABS: POTASSIUM 4.1 MEQ/L (3.5-5.1)
[2016-11-06 08:00] VITALS: BP 128/79; PULSE 88; RESP 20; TEMP 97.7; O2SAT 99
[2016-11-06] MEDS: PANTOPRAZOLE SOD 40 MG DELAYED RELEASE TAB PO SCH (09:15)
[2016-11-06] MEDS: DOCUSATE SODIUM 100 MG CAP PO SCH (09:15)
[2016-11-06] MEDS: NICOTINE 21 MG/24 HR PATCH T-DERMAL SCH (09:16)
[2016-11-06] MEDS: SODIUM CHLORIDE 0.9% FLUSH 10 ML FLUSH IV FLUSH SCH (09:16)
[2016-11-06] MEDS: SENNOSIDES 8.6 MG TAB PO SCH (09:16)
--- NOTE | 2016-11-06 10:25 | HHI.PR ---
Subjective Remarks This is a pleasant 51 y/o Male with infection of the left index finger and Left Middle finger, after injury, status post Irrigation and debridement and repair of the flexor extensor tendons and Pinning of the left middle finger distal interphalangeal joint and the left index finger proximal phalangeal joint on 10/13/16. The patient has been noncompliant with follow-up and treatment. recommended to come to ER 10/22/16, but the patient came on 10/29/16, developed Purulent tissue. taken to Surgery room status post I and D. subcutaneous tissue, muscle and bone of the left middle finger and also of the left index finger, open reduction and pinning of both the left middle finger DIP joint and the left index finger PIP joint. Cultures were taken and the culture has growth of MRSA. 11/04: Stable in his bedroom, no nausea, vomit or diarrhea. 11/05: Awaiting final by Hand epic stork specialists and by ID specialist continue antibiotics, for growing Pseudomonas Aeruginosa and MRSA. 11/06: Seen in his bedroom no nausea, vomit or diarrhea, discussed with nurse Miss Song, awaiting for Hand certified peer specialist Doctor [place] de [place] o I and D to follow. Objective Vital Signs Date Time Temp Pulse Resp B/P Pulse Ox O2 Delivery O2 Flow Rate FiO2 11/06/16 08:00 97.7 88 20 128/79 99 11/06/16 04:00 97.7 97 17 117/81 99 11/06/16 00:00 97.0 82 17 105/72 99 11/05/16 22:00 98 11/05/16 20:00 96.8 97 17 128/78 99 11/05/16 16:00 98.7 89 19 186/81 95 11/05/16 12:00 96.9 92 19 122/80 97 I/O 11/05/16 11/05/16 11/05/16 11/06/16 11/06/16 11/06/16 07:00 15:00 23:00 07:00 15:00 23:00 Intake Total 240 ml 1080 ml 480 ml 500 ml 0 ml Output Total 960 ml 600 ml Balance 240 ml 120 ml -120 ml 500 ml 0 ml Intake Oral 240 ml 1080 ml 480 ml 0 ml 0 ml IV Total 0 ml 500 ml Output Urine Total 960 ml 600 ml # Voids 2 2 # Bowel Movements 1 Result Diagram: 11/06/16 0453 11/06/16 0453 Imaging Current Medications Medications (Trade) Dose Ordered Sig/Ronel Route Start Time Stop Time Status Last Admin (NS Flush) 2 ml UNSCH PRN IV FLUSH 10/29/16 03:30 (NS Flush) 2 ml BID IV FLUSH 10/29/16 09:00 11/06/16 09:16 Naloxone HCl 0.4 mg 0.4 mg UNSCH PRN IV 10/29/16 03:30 (Vancomycin Consult Pharmacy) 0 ml @ 0 mls/hr UNSCH OTHER 10/29/16 03:30 (Tylenol) 650 mg Q4H PRN PO 10/29/16 13:45 (Zofran Inj) 4 mg Q6H PRN IV 10/29/16 13:45 10/31/16 20:07 (Gina-Colace) 1 tab BID PRN PO 10/29/16 13:45 (Restoril) 15 mg HS PRN PO 10/29/16 13:45 (Habitrol 21 Mg Patch.24 Hr) 1 patch DAILY T-DERMAL 10/29/16 13:45 11/06/16 09:16 Miscellaneous Information 1 HS T-DERMAL 10/29/16 21:00 11/05/16 19:47 (Colace) 100 mg BID PO 10/30/16 11:30 11/06/16 09:15 (Dilaudid Pf Inj) 0.5 mg Q4H PRN IV PUSH 10/30/16 11:30 11/06/16 00:42 (Roxicodone) 5 mg Q4H PRN PO 10/31/16 14:00 (Roxicodone) 10 mg Q4H PRN PO 10/31/16 14:00 11/06/16 09:16 (Senokot) 17.2 mg DAILY PO 11/01/16 11:00 11/06/16 09:16 (Levaquin) 500 mg Q24H PO 11/02/16 17:00 11/05/16 16:31 Pantoprazole Sodium 40 mg 40 mg DAILY PO 11/04/16 09:00 11/06/16 09:15 (Vancomycin Inj/ NS 500 ml Inj) 522.5 ml @ 250 mls/hr Q18H IV 11/04/16 06:00 11/05/16 16:31 Miscellaneous Information SPECIFIC LAB TO BE DRAWN:VANCOMYCIN TROUGH DATE TO... ONCE ONCE .XX 11/06/16 11:45 11/06/16 11:46 (Lovenox Inj) 40 mg Q24H SQ 11/05/16 12:00 11/05/16 11:57 Procedures I and D. Other Results Laboratory Tests Test 11/02/16 11/03/16 11/06/16 05:32 11:47 04:53 Magnesium Level 2.2 MG/DL Total Bilirubin 0.4 MG/DL Aspartate Amino Transf 56 U/L (AST/SGOT) Alanine Aminotransferase 119 U/L (ALT/SGPT) Alkaline Phosphatase 85 U/L Total Protein 7.8 GM/DL Albumin 3.3 GM/DL Vancomycin Level Trough 10.1 MCG/ML White Blood Count 7.8 TH/MM3 Red Blood Count 4.31 MIL/MM3 Hemoglobin 13.0 GM/DL Hematocrit 36.7 % Mean Corpuscular Volume 85.1 FL Mean Corpuscular Hemoglobin 30.0 PG Mean Corpuscular Hemoglobin 35.3 % Concent Red Cell Distribution Width 13.7 % Platelet Count 252 TH/MM3 Mean Platelet Volume 8.0 FL Neutrophils (%) (Auto) 51.7 % Lymphocytes (%) (Auto) 28.4 % Monocytes (%) (Auto) 14.3 % Eosinophils (%) (Auto) 4.8 % Basophils (%) (Auto) 0.8 % Neutrophils # (Auto) 4.0 TH/MM3 Lymphocytes # (Auto) 2.2 TH/MM3 Monocytes # (Auto) 1.1 TH/MM3 Eosinophils # (Auto) 0.4 TH/MM3 Basophils # (Auto) 0.1 TH/MM3 CBC Comment DIFF FINAL Differential Comment Sodium Level 136 MEQ/L Potassium Level 4.1 MEQ/L Chloride Level 100 MEQ/L Carbon Dioxide Level 28.6 MEQ/L Anion Gap 7 MEQ/L Blood Urea Nitrogen 19 MG/DL Creatinine 1.26 MG/DL Estimat Glomerular Filtration 60 ML/MIN Rate Random Glucose 107 MG/DL Calcium Level 9.1 MG/DL Objective Remarks GENERAL: NAD, resting in bed. SKIN: Warm and dry. HEAD: Normocephalic. EYES: No scleral icterus. No injection or drainage. NECK: Supple, trachea midline. No JVD or lymphadenopathy. CARDIOVASCULAR: Regular rate and rhythm without murmurs, gallops, or rubs. RESPIRATORY: Breath sounds equal bilaterally. No accessory muscle use. GASTROINTESTINAL: Abdomen soft, non-tender, nondistended. MUSCULOSKELETAL: No cyanosis, or edema. Left hand bandaged. BACK: Nontender without obvious deformity. No CVA tenderness. NEURO: No gross deficits. PSYCH: Mood and affect appropriate. Medications and IVs Current Medications Medications (Trade) Dose Ordered Sig/Ronel Route Start Time Stop Time Status Last Admin (NS Flush) 2 ml UNSCH PRN IV FLUSH 10/29/16 03:30 (NS Flush) 2 ml BID IV FLUSH 10/29/16 09:00 11/06/16 09:16 Naloxone HCl 0.4 mg 0.4 mg UNSCH PRN IV 10/29/16 03:30 (Vancomycin Consult Pharmacy) 0 ml @ 0 mls/hr UNSCH OTHER 10/29/16 03:30 (Tylenol) 650 mg Q4H PRN PO 10/29/16 13:45 (Zofran Inj) 4 mg Q6H PRN IV 10/29/16 13:45 10/31/16 20:07 (Gina-Colace) 1 tab BID PRN PO 10/29/16 13:45 (Restoril) 15 mg HS PRN PO 10/29/16 13:45 (Habitrol 21 Mg Patch.24 Hr) 1 patch DAILY T-DERMAL 10/29/16 13:45 11/06/16 09:16 Miscellaneous Information 1 HS T-DERMAL 10/29/16 21:00 11/05/16 19:47 (Colace) 100 mg BID PO 10/30/16 11:30 11/06/16 09:15 (Dilaudid Pf Inj) 0.5 mg Q4H PRN IV PUSH 10/30/16 11:30 11/06/16 00:42 (Roxicodone) 5 mg Q4H PRN PO 10/31/16 14:00 (Roxicodone) 10 mg Q4H PRN PO 10/31/16 14:00 11/06/16 09:16 (Senokot) 17.2 mg DAILY PO 11/01/16 11:00 11/06/16 09:16 (Levaquin) 500 mg Q24H PO 11/02/16 17:00 11/05/16 16:31 Pantoprazole Sodium 40 mg 40 mg DAILY PO 11/04/16 09:00 11/06/16 09:15 (Vancomycin Inj/ NS 500 ml Inj) 522.5 ml @ 250 mls/hr Q18H IV 11/04/16 06:00 11/05/16 16:31 Miscellaneous Information SPECIFIC LAB TO BE DRAWN:VANCOMYCIN TROUGH DATE TO... ONCE ONCE .XX 11/06/16 11:45 11/06/16 11:46 (Lovenox Inj) 40 mg Q24H SQ 11/05/16 12:00 11/05/16 11:57 A/P Assessment and Plan Osteomyelitis of left second and third digits Hand surgery consult appreciated. S/p I&D and repeat pinning left index PIP and middle finger DIP joints. Wound culture growing MRSA and Pseudomonas. ID consult appreciated. - Continue Vancomycin IV for four weeks. Levaquin by mouth. awaiting for hand certified peer specialist and probable new I and D today. Acute renal failure Improved. Renal US unremarkable. Transaminitis/ Nausea Hepatitis panel reactive to hepatitis C.CT abdomen unremarkable - Trend LFTs. Improving. Tobacco abuse Tobacco counseling cessation provided. - Nicotine patch. PPx: Lovenox. Discussed with Patient and Nurse Miss Song, all questions answered to the best of my abilities. Discharge Planning Once cleared by specialists. Hector Hirsch MD Nov 06, 2016 10:25
[2016-11-06] MEDS ORDERED: PHARMACY ORDERED LAB ONE (11:45)
[2016-11-06 12:00] VITALS: BP 130/80; PULSE 86; RESP 19; TEMP 97.6; O2SAT 96
[2016-11-06] MEDS: ENOXAPARIN SODIUM 40 MG/0.4 ML SYRINGE SQ SCH (12:00)
[2016-11-06] MEDS: VANCOMYCIN INJ 2,250 MG in SODIUM CHLORID 0.9% 500 ML INJ 500 ML IV SCH (12:16)
--- NOTE | 2016-11-06 14:26 | PD.ORT.PN ---
Subjective Subjective Remarks Patient reports pain controlled. Patient would like to go home soon. States he will be compliant with antibiotics Objective Vitals Vital Signs Date Time Temp Pulse Resp B/P Pulse Ox O2 Delivery O2 Flow Rate FiO2 11/06/16 12:00 97.6 86 19 130/80 96 11/06/16 08:00 97.7 88 20 128/79 99 11/06/16 04:00 97.7 97 17 117/81 99 11/06/16 00:00 97.0 82 17 105/72 99 11/05/16 22:00 98 11/05/16 20:00 96.8 97 17 128/78 99 11/05/16 16:00 98.7 89 19 186/81 95 I/O 11/05/16 11/05/16 11/05/16 11/06/16 11/06/16 11/06/16 07:00 15:00 23:00 07:00 15:00 23:00 Intake Total 240 ml 1080 ml 480 ml 500 ml 480 ml Output Total 960 ml 600 ml 700 ml Balance 240 ml 120 ml -120 ml 500 ml -220 ml Intake Oral 240 ml 1080 ml 480 ml 0 ml 480 ml IV Total 0 ml 500 ml Output Urine Total 960 ml 600 ml 700 ml # Voids 2 2 # Bowel Movements 1 0 Result Diagram: 11/06/16 0453 11/06/16 0453 Imaging Last 24 hours Impressions Hand X-Ray 10/29/16 0000 Signed Impressions: Service Date/Time: October 07:33 - CONCLUSION: Status post pinning and reduction of fractures involving the second and third digits as described. Nicola Cruz MD Objective Remarks Dressing removed. K-wires in place left index and middle fingers. No purulent drainage on dressing change.. decreased sensation index and middle fingers, <2 sec capillary refill index and middle fingers. able to fire fds middle finger and fdp index finger Assessment & Plan Assessment and Plan [id number] significant for cocaine, heroin, and amphetamine use s/p pinning left index and middle fingers 10/13 s/p severe table saw injury noted to have purulence from incisions on followup 10/22 with significant noncompliance with instructions to come to the ER for antibiotics and I&D. Patient did not present to ER until a week after instructed. -Cultures +MRSA and pseudomonas. Appreciate ID recommendations IV Vanc and oral Levaquin. Okay to discharge if can arrange antibiotics as outpatient. -New dressing and dorsal blocking splint placed. If discharged recommend followup in office next . Patient aware. Patient understands likely will need additional surgery on index finger PIP joint in future for possible fusion. -Patient understands importance of therapy and followup -Patient at high risk for wound complications, malunion, nonunion, pain, paresthesias, osteomyelitis, need for amputation of the fingers -Will continue to follow Stacy Braswell MD Nov 06, 2016 14:26
--- NOTE | 2016-11-06 14:53 | HHI.FF ---
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 [] May leave port accessed during therapy. [] May leave peripheral site accessed for duration of therapy. [x] If patient has SOB or respiratory distress, check oxygen saturation. If less than 90% or clinical signs of respiratory distress, administer oxygen at 2 L/min. via nasal cannula and notify physician. [x] Anaphylaxis/Reaction orders: * Stop infusion. * Keep IV line open with saline flush. * Notify physician. * Monitor vital signs every 15 minutes until symptoms resolve. * Check Oxygen saturation; Oxygen at 2 L/min. via nasal cannula if less than 90% or clinical signs of respiratory distress. * Administer diphenhydramine (Benadryl) 25 mg IV STAT, (unless patient has received as pre-med). May repeat once, if necessary. * Solu-Cortef 250 mg IVP over 30-60 seconds, use 100 mg vials for each dissolution. * Epinephrine (1mg/1 ml) 0.3 mg subcutaneously or IVP now with any signs of respiratory distress. * Check with physician for new additional pre-med orders if patient is re- challenged or re-treated. [x] May remove PICC line when treatment complete, after confirming with Physician. [x] If the patient is admitted to the hospital, the ED, or transferred via [facility] , complete transfer form including medication reconciliation order sheet. Laboratory Tests Weekly Labs: BMP, Vancomycin Trough Rusty Meza MD Nov 06, 2016 14:53
--- NOTE | 2016-11-06 15:09 | HHI.IDPN ---
Note Infectious Disease Note Patient without complaints. little pain in left hand. No fever. Wound culture has MRSA and pseudomonas. Admitted for infection of the left being index finger and left middle finger. Noncompliant with follow-up and treatment. He was recommended to present to the emergency department on 10/22/2016 for hospital admission and IV antibiotics. He did not come to the emergency room until 10/29/2016 when he was transferred from a different facility. Developed purulence from the finger wound and prior to presenting he had nausea, vomiting, sweats and severe pain in the left index and left middle finger. ALLERGIES No known drug allergies. MEDICATIONS 1. Vancomycin. 2. Levaquin. SOCIAL HISTORY The patient smokes a pack of cigarettes a day. He uses cocaine IV. Occasional alcohol. OBJECTIVE: Vital Signs Date Time Temp Pulse Resp B/P Pulse Ox O2 Delivery O2 Flow Rate FiO2 11/06/16 12:00 97.6 86 19 130/80 96 11/06/16 08:00 97.7 88 20 128/79 99 11/06/16 04:00 97.7 97 17 117/81 99 11/06/16 00:00 97.0 82 17 105/72 99 11/05/16 22:00 98 11/05/16 20:00 96.8 97 17 128/78 99 11/05/16 16:00 98.7 89 19 186/81 95 11/05/16 11/05/16 11/06/16 14:59 22:59 06:59 Intake Total 1080 ml 480 ml 500 ml Output Total 960 ml 600 ml Balance 120 ml -120 ml 500 ml Intake Oral 1080 ml 480 ml 0 ml IV Total 0 ml 500 ml Output Urine Total 960 ml 600 ml # Voids 2 # Bowel Movements 1 Laboratory Tests Test 11/06/16 04:53 White Blood Count 7.8 TH/MM3 Red Blood Count 4.31 MIL/MM3 Hemoglobin 13.0 GM/DL Hematocrit 36.7 % Mean Corpuscular Volume 85.1 FL Mean Corpuscular Hemoglobin 30.0 PG Mean Corpuscular Hemoglobin 35.3 % Concent Red Cell Distribution Width 13.7 % Platelet Count 252 TH/MM3 Mean Platelet Volume 8.0 FL Neutrophils (%) (Auto) 51.7 % Lymphocytes (%) (Auto) 28.4 % Monocytes (%) (Auto) 14.3 % Eosinophils (%) (Auto) 4.8 % Basophils (%) (Auto) 0.8 % Neutrophils # (Auto) 4.0 TH/MM3 Lymphocytes # (Auto) 2.2 TH/MM3 Monocytes # (Auto) 1.1 TH/MM3 Eosinophils # (Auto) 0.4 TH/MM3 Basophils # (Auto) 0.1 TH/MM3 CBC Comment DIFF FINAL Differential Comment Laboratory Tests Test 11/05/16 11/06/16 06:30 04:53 Creatinine 1.25 MG/DL 1.26 MG/DL Estimat Glomerular Filtration 61 ML/MIN 60 ML/MIN Rate Sodium Level 136 MEQ/L Potassium Level 4.1 MEQ/L Chloride Level 100 MEQ/L Carbon Dioxide Level 28.6 MEQ/L Anion Gap 7 MEQ/L Blood Urea Nitrogen 19 MG/DL Random Glucose 107 MG/DL Calcium Level 9.1 MG/DL PHYSICAL EXAMINATION GENERAL: No acute distress. HEENT: No icterus. NECK: Supple. No adenopathy. LUNGS: Clear to auscultation. HEART: Regular rate and rhythm without murmurs, rubs or gallops. ABDOMEN: Non tender EXTREMITIES: The left hand is wrapped in a surgical dressing. Splint in place. NEUROLOGIC: Nonfocal. SKIN: No rash. IMPRESSION 1. MRSA wound infection of left index and middle finger following wound injury to both fingers. Patient status post repeat surgery including debridement and pinning of the index and middle fingers of the left hand. Culture has MRSA and Pseudomonas. 2. Noncompliance. RECOMMENDATIONS 1. Continue vancomycin intravenous x 4 weeks. 2. Levaquin PO x 6 weeks. 3. Stressed compliance with the plan for antibiotic treatment. Otherwise patient at risk of losing portions of the left index and middle finger. Patient is adamant on being discharged today. I have ordered IV Vancomycin for out patient. PIC line will be ordered if IV antibiotic is approved as patient has no payor source. Consulted hospice case manager to arrange. If arranged He can go to infusion clinic for antibiotic. If unable to arrange IV Vanco, He can be given Bactrim PO 2 tabs BID and PO Levaquin both for 4 weeks. He is to follow up with the hand surgeon. Scripts written and RN instructed about the meds. Rusty Meza MD Nov 06, 2016 15:08
[2016-11-06] MEDS ORDERED: BACT800T5 PO (15:13)
[2016-11-06] MEDS ORDERED: LEVA500T20 PO (15:18)
[2016-11-06] MEDS ORDERED: OXYC-392 PO (15:58)
[2016-11-06 16:00] VITALS: BP 130/85; PULSE 97; RESP 20; TEMP 96.9; O2SAT 98
--- NOTE | 2016-11-06 16:54 | HHI.DS ---
Discharge Summary Admission Date Oct 29, 2016 at 03:23 Discharge Date: Nov 06, 2016 Admitting Diagnosis osteomyelitis left second and third digit (1) Infection of left hand ICD Code: L08.9 Procedures I&D Brief History - From Admission History from patient, ER physician communication, and review of medical records. Patient is known to me from his prior hospitalization. Patient in his last hospitalization had hand surgery for having had injury from a chain saw. He reports that since discharge, he noticed that his wound was getting more and more swollen with purulent discharge. He then had an outpatient appointment with Dr. Braswell the hand surgeon on Wednesday. He was told at that time that he does have postop infection and that he needed to be on antibiotics. She was supposed to come to hospital on that day. He however did not come. However for the past 2 days, he started having some nausea, some sweating. No diaphoresis. He also did report of some vomiting. Reports of sweating with subjective fevers at that time. This symptoms of nausea and vomiting was what made him go to [facility] which was the closest place to him at that time. His workup done there reviewed. He has had left hand x-ray suggestive of osteomyelitis. His case was discussed with the hand surgery front end web designer by [facility] staff members and he was transferred here for surgical intervention of this postop infection. Patient is admitted to medicine service per hand surgery request. CBC/BMP: 11/06/16 0453 11/06/16 0453 Significant Findings Laboratory Tests Test 11/05/16 11/06/16 11/06/16 06:30 04:53 12:20 Estimat Glomerular Filtration 61 ML/MIN (>89) 60 ML/MIN (>89) Rate Red Blood Count 4.31 MIL/MM3 (4.50-5.90) Hematocrit 36.7 % (39.0-51.0) Monocytes (%) (Auto) 14.3 % (0.0-8.0) Eosinophils (%) (Auto) 4.8 % (0.0-4.0) Monocytes # (Auto) 1.1 TH/MM3 (0-0.9) Blood Urea Nitrogen 19 MG/DL (7-18) Random Glucose 107 MG/DL (74-106) Vancomycin Level Trough 15.3 MCG/ML (5.0-10.0) Imaging Last Impressions Hand X-Ray 11/03/16 0000 Signed Impressions: Service Date/Time: Thursday, November 03, 2016 21:16 - CONCLUSION: Prominent soft tissue swelling and postsurgical changes with external fixation pin hardware placement. Constantin Elliott MD Renal Ultrasound 11/02/16 0000 Signed Impressions: Service Date/Time: Wednesday, November 02, 2016 15:13 - CONCLUSION: Normal examination. Left kidney stone seen on CT scan is not identified on the ultrasound Miguel Ángel Jacques MD Abdomen/Pelvis CT 10/31/16 0000 Signed Impressions: Service Date/Time: Monday, October 31, 2016 20:39 - CONCLUSION: 1. Tiny nonobstructing stone in the left kidney. 2. Chronic spondylolysis bilateral L5. K. Luisito Malagon MD PE at Discharge GENERAL: NAD, resting in bed. SKIN: Warm and dry. HEAD: Normocephalic. EYES: No scleral icterus. No injection or drainage. NECK: Supple, trachea midline. No JVD or lymphadenopathy. CARDIOVASCULAR: Regular rate and rhythm without murmurs, gallops, or rubs. RESPIRATORY: Breath sounds equal bilaterally. No accessory muscle use. GASTROINTESTINAL: Abdomen soft, non-tender, nondistended. MUSCULOSKELETAL: No cyanosis, or edema. Left hand bandaged. BACK: Nontender without obvious deformity. No CVA tenderness. NEURO: No gross deficits. PSYCH: Mood and affect appropriate. Hospital Course This is a pleasant 51 y/o Male with infection of the left index finger and Left Middle finger, after injury, status post Irrigation and debridement and repair of the flexor extensor tendons and Pinning of the left middle finger distal interphalangeal joint and the left index finger proximal phalangeal joint on 10/13/16. The patient has been noncompliant with follow-up and treatment. recommended to come to ER 10/22/16, but the patient came on 10/29/16, developed Purulent tissue. taken to Surgery room status post I and D. subcutaneous tissue, muscle and bone of the left middle finger and also of the left index finger, open reduction and pinning of both the left middle finger DIP joint and the left index finger PIP joint. Cultures were taken and the culture has growth of MRSA. 11/04: Stable in his bedroom, no nausea, vomit or diarrhea. 11/05: Awaiting final by Hand food safety field specialist and by ID specialist continue antibiotics, for growing Pseudomonas Aeruginosa and MRSA. 11/06: Seen in his bedroom no nausea, vomit or diarrhea, discussed with nurse Miss Song, awaiting for Hand asw specialist Doctor French probable I and D to follow. Assessment and Plan Osteomyelitis of left second and third digits Hand surgery consult appreciated. S/p I&D and repeat pinning left index PIP and middle finger DIP joints. Wound culture growing MRSA and Pseudomonas. ID consult appreciated. - Continue Vancomycin IV for four weeks. Levaquin by mouth. awaiting for hand asw specialist and probable new I and D today. Acute renal failure Improved. Renal US unremarkable. Transaminitis/ Nausea Hepatitis panel reactive to hepatitis C.CT abdomen unremarkable - Trend LFTs. Improving. Tobacco abuse Tobacco counseling cessation provided. - Nicotine patch. PPx: Lovenox. Discussed with Patient and Nurse Miss Song, all questions answered to the best of my abilities. Discharge Planning Discussed with Infectious Disease specialist doctor Rusty garcíaay to discharge once PICC Line placed and will come back to Infusion center on daily basis for Vancomycin infusion for four weeks and Levaquin for six weeks by mouth, discussed with patient he agree to use his PICC line only for his Vancomycin use and not for Drug abuse. Follow up with hand food safety field specialist in one week. Pt Condition on Discharge: Good Discharge Disposition: Discharge Home Discharge Time: > 30 minutes Discharge Instructions DIET: Follow Instructions for: As Tolerated, No Restrictions Activities you can perform: Regular-No Restrictions Hector Hirsch MD Nov 06, 2016 16:53
[2016-11-06] MEDS: LEVOFLOXACIN 500 MG TAB PO SCH (17:22)
--- NOTE | 2016-11-06 17:46 | RADRPT ---
EXAM DATE/TIME: 11/06/2016 17:11 [place] COMPARISON: No previous studies available for comparison. INDICATIONS : PICC line placement MEDICAL HISTORY : Osteomyelitis. Left hand osteo SURGICAL HISTORY : Unknown ENCOUNTER: Initial ACUITY: 1 day PAIN SCORE: 0/10 LOCATION: Bilateral chest FINDINGS: A single view of the chest demonstrates the lungs to be symmetrically aerated without evidence of mas s, infiltrate or effusion. The cardiomediastinal contours are unremarkable. Osseous structures are intact. Right arm PICC line is in good position with tip overlying SVC CONCLUSION: PICC line in good position. Randy Carbone MD on November 06, 2016 at 17:44 Board Certified Radiologist. This report was verified electronically.
== END 2016-11-06 18:49 | disposition home or self-care (01) | DRG 857 ==
LOC: NEPC 02:23 → NEDA 03:23 → MERGE 03:23 → N07A 14:44
PROVIDERS: ADMIT Internal Medicine; ATTEND Internal Medicine
PROC: 0PHV04Z Insertion of Internal Fixation Device into Left Finger Phalanx, Open Approach (ICD-10-PCS; 2016-10-29)
PROC: 0PBV0ZZ Excision of Left Finger Phalanx, Open Approach (ICD-10-PCS; principal; 2016-10-29 17:07)
PROC: 0PPV04Z Removal of Internal Fixation Device from Left Finger Phalanx, Open Approach (ICD-10-PCS; 2016-10-29 17:07)
PROC: 02HV33Z Insertion of Infusion Device into Superior Vena Cava, Percutaneous Approach (ICD-10-PCS; 2016-11-06)
PROC: B548ZZA Ultrasonography of Superior Vena Cava, Guidance (ICD-10-PCS; 2016-11-06)
DX: T81.4XXA Infection following a procedure, initial encounter (principal); N17.9 Acute kidney failure, unspecified; M86.9 Osteomyelitis, unspecified; B96.5 Pseudomonas (aeruginosa) (mallei) (pseudomallei) as the cause of diseases classified elsewhere; B95.62 Methicillin resistant Staphylococcus aureus infection as the cause of diseases classified elsewhere; F17.210 Nicotine dependence, cigarettes, uncomplicated; F14.90 Cocaine use, unspecified, uncomplicated; W31.2XXD Contact with powered woodworking and forming machines, subsequent encounter; Z91.19 Patient's noncompliance with other medical treatment and regimen; B19.20 Unspecified viral hepatitis C without hepatic coma; R11.2 Nausea with vomiting, unspecified
CPT/HCPCS: 36569; 71010; 73120; 73130; 74176; 76775; 76937; 80048; 80053; 80074; 80076; 80202; 80307; 81001; 82550; 82565; 82570; 83690; 83735; 84300; 84484; 85025; 85027; 85610; 85652; 85730; 86140; 86403; 87015; 87070; 87077; 87102; 87116; 87186; 87205; 87206; 93005; 99285; C9113; J1100; J1170; J1650; J2250; J2270; J2370; J2405; J2543; J2710; J2765; J3010; J3370; J7030; J7040; J7042; J7120; Q9963